=== PATIENT | female | born 1950 | race Caucasian/White ===

== ENCOUNTER 2019-09-02 05:31 | Day surgery (SDC) | payer MEDICARE, OTHER, SELFPAY ==
[2019-09-01 10:36] VITALS: BMI 38.7
[2019-09-02] VITALS (10 sets, daily range): BP systolic 131–178; BP diastolic 66–98; PULSE 76–85; RESP 14–20; TEMP 36.2–36.6; O2SAT 93–100
[2019-09-02 05:49] LABS: Glucose Point of Care 131 mg/dL (70-110)
[2019-09-02] MEDS: sodium chloride 0.9% 1,000 ML 30 ML IV (05:51)
--- NOTE | 2019-09-02 06:20 | ANES.PREANES ---
Pre-Anesthetic Assessment Pre-Anesthetic Assessment: Height/Weight: Height 1.68 m Weight 108.862 kg Temp Pulse Resp BP Pulse Ox 97.1 F L 85 18 178/98 95 09/02/19 05:40 09/02/19 05:40 09/02/19 05:40 09/02/19 05:40 09/02/19 05:40 Preop Diagnosis: Left shouledr rotator cuff tear, AC joint DJD, subluxing long head of bicep Proposed Procedure: Operation Date: 09/02/19 07:00 Proposed Procedures p Shoulder Arthroscopy, subacromial decompression, poss biceps tenodesis 12365/M75.112 S46.119A(Left) - Jake Rubio DO s Rotator Cuff Repair(Left) - Jake Rubio DO Familial anesthetic complications: No history of trouble Was Beta Cristela taken within 24 hours: Yes Last intake: Intake Last Liquid Date 09/01/19 Last Liquid Time 19:00 Last Solid Date 09/01/19 Last Solid Time 19:00 Social: Social History: No alcohol and No tobacco Exam: Pre-Anes Outpt Exam: alert, oriented x 3, clear to auscultation bilaterally and regular rate & rhythm Airway: Cervical ROM: WNL MP: 3 Additional comments: back teeth missing Pulmonary: Pulmonary: Sleep apnea (CPap) Comments: pneumothorax 1980 and 1981 (was told she had weak spot); no issues since then. Was told she shouldn't blow up balloons, will need to be careful with positive pressure ventilation, patient does use 10 of CPAP at night CV/HEM: CV/HEM: HTN Comments: Was told they had to use the paddles during a previous surgery, but she nor family was told nothing about cardiac arrest and surgeon didn't even tell her until she asked why her chest was bruised so this is unlikely to be cardiac arrest or defibrillation : : None reported Hepatic: Hepatic: None reported Metabolic: Metabolic: DM and Morbid obesity Musc/skel: Musc/skel: Lower Back Pain Neuropsych: Neuropsych: None reported Anesthetic Plan: ASA status: III Anesthesia: General Other: interscalene Risk of > 500 ml blood loss (7ml/kg in children): No Meds/Allergies Current Medications: Current Medications Generic Name Dose Route Start Last Admin Trade Name Freq PRN Reason Stop Dose Admin Sodium Chloride 1,000 mls @ 30 ml s/hr 09/02/19 05:30 09/02/19 05:51 Sodium Chloride 0.9% IV 09/03/19 05:29 30 mls/hr .Q24H [place] Administration PFSH Anesthesia PFSH: Family History (Updated 09/01/19 @ 10:23 by Mahsa Rae) Mother Cancer Father Emphysema lung Other Diabetes Heart disease Hypertension Data Anesthesia Other Labs: Laboratory Results - last 48 hr 09/02/19 05:46 POC Glucose 131 Cardiac Studies: No Data to Display
[2019-09-02] MEDS: midazolam 1 mg/mL INJ 5 ML 2 MG IVP (06:38)
[2019-09-02] MEDS: cefUROXime 1,500 MG in sodium chloride 0.9% (plus) 50 ML 100 MG IV (06:57)
--- NOTE | 2019-09-02 07:11 | PM.HPUD ---
H&P update H&P Update: DATE OF SURGERY/PROCEDURE: 09/02/19 DATE H&P PERFORMED: 08/06/19 H&P UPDATE INFORMATION: H&P completed within last 30 days and No changes to prior documentation PREOP DIAGNOSIS: left shoulder rotator cuff tear, AC joint DJD, subluxing biceps tendon PLANNED PROCEDURE: Operation Date: 09/02/19 07:00 Proposed Procedures p Shoulder Arthroscopy, subacromial decompression, poss biceps tenodesis 23380/M75.112 S46.119A(Left) - Jake Rubio DO s Rotator Cuff Repair(Left) - Jake Rubio DO Full H&P Medications/Allergies: Current Medications: Current Medications Generic Name Dose Route Start Last Admin Trade Name Freq PRN Reason Stop Dose Admin Sodium Chloride 1,000 mls @ 30 ml s/hr 09/02/19 05:30 09/02/19 05:51 Sodium Chloride 0.9% IV 09/03/19 05:29 30 mls/hr .Q24H [place] Administration Perinent History: Family History: Family History (Updated 09/01/19 @ 10:23 by Mahsa Rae) Mother Cancer Father Emphysema lung Other Diabetes Heart disease Hypertension
--- NOTE | 2019-09-02 07:15 | P.OP_ITS ---
Operative Report Date of procedure: 09/02/19 Preop Diagnosis: left shoulder rotator cuff tear, AC joint DJD, subluxing biceps tendon Post-op Findings: type I SLAP lesion Partial-thickness left shoulder rotator cuff tear involving supraspinatus tendon Complete tear of long head of biceps tendon Acromioclavicular joint degenerative arthritis Procedure Done: diagnostic arthroscopy of left shoulder with minimal debridement Open rotator cuff repair Open subacromial decompression Open distal clavicle resection Implants: four Arthrex swivel lock anchors Specimens removed/disposition: distal clavicle and portions of acromion Surgeon: Jake Rubio Anesthesia: general and other (left interscalene block) Estimated blood loss (mL): 50 Complications: no apparent complications Findings: type I SLAP lesion Partial-thickness rotator cuff tearing of supraspinatus tendon Biceps tendon is not visualized within the left shoulder joint. No significant arthritic change of the glenohumeral joint Condition: stable Disposition: PACU Brief History: 68-year-old white female with chronic left shoulder pain felt to be on the basis of chronic impingement with acromioclavicular joint arthritis. MRI was suggestive of partial thickness tearing of the rotator cuff involving the supraspinatus tendon as well as a subluxating long head of biceps tendon. Risks, benefits and potential complications surgery discussed with the patient. Risks include aren't limited to infection, nerve/blood vessel/tendon injury, potential re-tear of rotator cuff. Failure to relieve all pain. Medical complications can include blood clots, heart attack, stroke risk up to including . All questions were answered patient agreeable to proceed with surgery. Procedure: patient identified. Surgical site was signed. Surgical permit was signed. Patient received a left-sided interscalene block in the preoperative holding area by the anesthesia team. Patient received 1.5 g Zinacef intravenously for surgical prophylaxis. The patient is taken to the operating room. She was placed supine on the operating room table. She was then placed under general anesthesia without difficulty. The patient is in position of the beachchair positioner. The patient is in sterilely prepped and draped usual fashion. Procedural pause was performed. Bony landmarks were outlined using a skin marker. Posterior portal incision was made with #11 blade. The arthroscopic sheath was introduced into the glenohumeral joint. The humeral joint was distended using arthroscopic pump using sterile saline and dilute epinephrine solution. We verified that we within the shoulder joint. The scope was taken superior to the subscapularis tendon intent of the skin anteriorly. Using a switching stick we tented the skin anteriorly and anterior incision was made with #15 blade an Arthrex 7 mm clear cannula was then inserted into the glenohumeral joint. Arnoldo then placed within the shoulder joint through the anterior portal. The patient noted to have a type I SLAP lesion with fraying from anterior to posterior. This was debrided using motorized shaver. Patient had some mild to moderate synovitis. The long head of the biceps tendon was not identified is felt that the tendon had completely torn off of the glenoid rim. There are 3 changes were noted. We then sent trochanter attention to the insertion of rotator cuff there is partial tearing enfolding of the articular fibers of the supraspinatus tendon. This area partially staring was tagged by placing a spinal needle through the skin into the shoulder joint and placing a 0 PDS suture through the spinal needle and exiting out the anterior cannula. We then removed the arthroscope from the shoulder joint as well as the Arthrex clear cannula. The arthroscope was placed in the subacromial space and exit at the anterior portal over which the Arthrex clear cannula was then inserted subacromial space. We attempted to debridement bursal tissue had difficulty obtaining good visualization in the subacromial space due to the bleeding and swelling of the soft tissues. This point I elected to convert to an open procedure 8 cm incision was made from distal clavicle going over the anterolateral border of the acromion. Full-thickness skin flaps were made skin edge bleeders were coagulated electrocautery. We then incised the deltotrapezial insertion of distal clavicle and the acromion using the electrocautery. Full-thickness flaps of muscular insertion on the acromion and distal clavicle was performed. We then identified the before meals joint. The distal clavicle was cut using oscillating saw as was the anterior aspect of the acromion. We then thinned the acromion using osteotome. Portions distal clavicle and the acromion were submitted for pathology. We then smoothed the undersurface of the acromion using a power rasp. We then split the junction of the anterior and middle bellies of the deltoid longitudinally with Metzenbaum scissors and suffered a retractors put into place. We identified the PDS suture in the intact bursal sided fibers the rotator cuff. Using a 15 blade we completed the partial thickness tear of the rotator cuff and elevated the supraspinatus tendon off of the greater tuberosity. The greater tuberosity portions of the attached rotator cuff were debrided using a rongeur followed by roughening of the greater tuberosity using a motorized rasp. Then placed 2 Arthrex swivel lock anchors preloaded with fiber tape anteriorly and posteriorly making the medial row. the joint fiber tape sutures were passed through the rotator cuff using the [employer] needle automobile drivers. We then split the fiber tape sutures to create a speed bridge construct which was secured in place securing the rotator cuff tendon down to bone by placing 2 lateral row swivel lock anchors. There is irrigated with Betadine-containing saline solution and antibiotic containing saline solution. The deltoid insertion onto the acromion was repaired by passing suture through the deltoid and through the acromion and suturing it to itself. Deltotrapezial insertion was closed with sutures of #2 FiberWire. The split of the deltoid was similarly repaired with suture #2 FiberWire. Wound was then closed in layers with a running 3-0 Monocryl septic or suture with Dermabond and Steri-Strips on skin. Sterile dressings were applied. The patient placed in a shoulder immobilizer. The patient was aroused from general anesthesia. She was taken to recovery room. She tolerated surgery well. All counts are correct.
[2019-09-02] MEDS: midazolam 1 mg/mL INJ 2 mL 2 MG IVP (07:26)
[2019-09-02] MEDS: EPINEPHrine 1 mg/mL INJ XX ×3 (08:25→08:41)
--- NOTE | 2019-09-02 09:56 | ANES.PROC ---
Anesthesia Procedures Procedure/Date: 09/02/19 Nerve Block ^: Nerve Block 1: Main Anesthesia: general anesthesia Time Out Performed: Yes Consent: requested by attending/covering physician, from patient, risks and benefits reviewed and patient agrees to proceed Nerve block location: interscalene Anesthesia monitors applied: pulse oximetry Nerve block position: semi sitting Anesthetic Used: ropivicaine 0.5% and with decadron (4 mg) Amount of anesthesia used (mL): 20 Ultrasound used to: recognize landmarks, visualize and ID brachial plexus and visualize and ID interscalene groove Interscalene/Femoral BLK: 2 stimuplex 22 g needle used for position and inplane approach Injection: neg aspiration of heme Patient Tolerated Procedure: well and no complications Complications: none
--- NOTE | 2019-09-02 10:36 | SUR.PHASEI ---
1023 PT AWAKES EASILY ENCOURAGED TO TAKE OCC DEEP BREATHES, VSS LT ARM IN SHOULDER IMMOBILIZER WITH FIRST ICE TO SHOULDER, PT DENIES PAIN AND NAUSEA, VSS PT TO OPS AWAKE ALERT ASKING FOR SPRITE TO SIP ON .
== END 2019-09-02 11:50 | disposition home or self-care (01) ==
PROVIDERS: Family Provider Nurse Practitioner Family; PCP Nurse Practitioner Family; Visit Provider Orthopaedic Surgery
PROC: (CPT 29805; principal; 2019-09-02 07:00)
PROC: (CPT 23120; 2019-09-02 07:00)
DX: S43.432A Superior glenoid labrum lesion of left shoulder, initial encounter (principal); X58.XXXA Exposure to other specified factors, initial encounter; Z82.49 Family history of ischemic heart disease and other diseases of the circulatory system; Z83.3 Family history of diabetes mellitus; I10 Essential (primary) hypertension; Z87.891 Personal history of nicotine dependence; Z79.84 Long term (current) use of oral hypoglycemic drugs; Z79.82 Long term (current) use of aspirin
CPT/HCPCS: 23120; 23130; 23412; 29822; 12345; 36416; 82962; 88304; 96365; 96374; 96375; J0171; J0697; J1100; J1580; J2001; J2250; J2405; J2704; J2795; J3010; J3490; J7030

== ENCOUNTER 2020-01-06 11:23 | Outpatient (RCR) | payer MEDICARE, OTHER, SELFPAY | END 2020-01-16 23:59 | disposition home or self-care (01) | LOC: SPT 11:23 | PROVIDERS: PCP Nurse Practitioner Family; Referring Provider Orthopaedic Surgery; Visit Provider Orthopaedic Surgery | DX: Z47.89 Encounter for other orthopedic aftercare (principal) | CPT/HCPCS: 97110; 97161; 97530 ==

== ENCOUNTER 2020-01-17 06:00 | Outpatient (RCR) | payer MEDICARE, OTHER, SELFPAY | END 2020-02-15 23:59 | disposition home or self-care (01) | LOC: SPT 06:00 | PROVIDERS: PCP Nurse Practitioner Family; Visit Provider Orthopaedic Surgery | DX: Z47.89 Encounter for other orthopedic aftercare (principal) | CPT/HCPCS: 97110 ==

== ENCOUNTER 2020-02-16 19:25 | Outpatient (RCR) | payer MEDICARE, OTHER, SELFPAY | END 2020-03-17 23:59 | disposition home or self-care (01) | LOC: SPT 19:25 | PROVIDERS: PCP Nurse Practitioner Family; Visit Provider Orthopaedic Surgery | DX: Z47.89 Encounter for other orthopedic aftercare (principal) | CPT/HCPCS: 97110 ==

== ENCOUNTER 2020-02-24 13:09 | Outpatient (CLI) | payer MEDICARE, OTHER, SELFPAY ==
--- NOTE | 2020-02-24 13:16 | MM_ITS ---
WS: [id number] BILATERAL SCREENING MAMMOGRAM WITH CHILO DISPLACEMENT VIEWS. CAD PERFORMED. HISTORY: SCREENING COMPARISON: 09/24/2018, 07/23/2017 Bilateral craniocaudal and mediolateral like views are performed. Chilo displacement views in CC and MLO projection also performed. Breasts composition: There are scattered areas of fibroglandular density. Prepectoral implants are again evident. These implants are shrunken and contracted with capsular calc ifications. Similar in appearance to the prior study. There are scattered calcifications and vascular calcifications. No new calcifications. No new masses. MM/[id number] IMPRESSION: BI-RADS: 2-Benign FOLLOW-UP: 1 Year Follow-up
== END 2020-02-24 13:10 | disposition home or self-care (01) ==
LOC: RADSHAW 13:14
PROVIDERS: PCP Nurse Practitioner Family; Visit Provider Nurse Practitioner Family
DX: Z12.31 Encounter for screening mammogram for malignant neoplasm of breast (principal)
CPT/HCPCS: 77067

== ENCOUNTER 2020-03-18 06:00 | Outpatient (RCR) | payer MEDICARE, OTHER, SELFPAY | END 2020-04-17 23:59 | disposition home or self-care (01) | LOC: SPT 06:00 | PROVIDERS: PCP Nurse Practitioner Family; Visit Provider Orthopaedic Surgery | DX: M25.612 Stiffness of left shoulder, not elsewhere classified (principal); R53.1 Weakness | CPT/HCPCS: 97110; 97140 ==

== ENCOUNTER 2020-04-18 06:00 | Outpatient (RCR) | payer MEDICARE, OTHER, SELFPAY | END 2020-05-17 23:59 | disposition home or self-care (01) | LOC: SPT 06:00 | PROVIDERS: PCP Nurse Practitioner Family; Referring Provider Specialist; Visit Provider Specialist | DX: Z47.89 Encounter for other orthopedic aftercare (principal) | CPT/HCPCS: 97110 ==

== ENCOUNTER 2020-05-18 06:00 | Outpatient (RCR) | payer MEDICARE, OTHER, SELFPAY | END 2020-06-17 23:59 | disposition home or self-care (01) | LOC: SPT 06:00 | PROVIDERS: PCP Nurse Practitioner Family; Referring Provider Specialist; Visit Provider Specialist | DX: Z47.89 Encounter for other orthopedic aftercare (principal) | CPT/HCPCS: 97110 ==

== ENCOUNTER 2020-06-18 06:00 | Outpatient (RCR) | payer MEDICARE, OTHER, SELFPAY | END 2020-07-17 23:59 | disposition home or self-care (01) | LOC: SPT 06:00 | PROVIDERS: PCP Nurse Practitioner Family; Referring Provider Specialist; Visit Provider Specialist | DX: Z47.89 Encounter for other orthopedic aftercare (principal) | CPT/HCPCS: 97110 ==

== ENCOUNTER → 2020-08-21 11:05 | Outpatient (BNVA) | payer MEDICARE, OTHER, SELFPAY | PROVIDERS: PCP Nurse Practitioner Family; Visit Provider Nurse Practitioner Family | DX: N39.0 Urinary tract infection, site not specified (principal) | CPT/HCPCS: 81003; 87086 ==

== ENCOUNTER → 2020-11-29 08:13 | Outpatient (BNVA) | payer MEDICARE, SELFPAY | PROVIDERS: PCP Nurse Practitioner Family; Visit Provider Urology | DX: N39.0 Urinary tract infection, site not specified (principal); R39.15 Urgency of urination | CPT/HCPCS: 81003 ==

== ENCOUNTER 2021-05-25 07:14 | Outpatient (CLI) | payer MEDICARE, SELFPAY ==
--- NOTE | 2021-05-25 07:24 | MM_ITS ---
WS: [id number] BILATERAL SCREENING MAMMOGRAM WITH CHILO DISPLACEMENT VIEWS. CAD PERFORMED. HISTORY: SCREENING COMPARISON: 02/24/2020, 09/24/2018 Bilateral craniocaudal and mediolateral like views are performed. Chilo displacement views in CC and MLO projection also performed. Breasts composition: There are scattered areas of fibroglandular density. Breast implants are small and contracted with capsular contractions. Probably no significant change s donta the prior study. There are no masses identified within the breast. MM/[id number] IMPRESSION: BI-RADS: 2-Benign FOLLOW-UP: 1 Year Follow-up
== END 2021-05-25 07:15 | disposition home or self-care (01) ==
LOC: RADSHAW 07:19
PROVIDERS: PCP Nurse Practitioner Family; Visit Provider Nurse Practitioner Family
DX: Z12.31 Encounter for screening mammogram for malignant neoplasm of breast (principal)
CPT/HCPCS: 77067

== ENCOUNTER → 2021-05-30 09:20 | Outpatient (BNVA) | payer MEDICARE, SELFPAY | PROVIDERS: PCP Nurse Practitioner Family; Visit Provider Urology | DX: N39.0 Urinary tract infection, site not specified (principal); R39.15 Urgency of urination | CPT/HCPCS: 81003 ==

== ENCOUNTER 2021-06-15 09:29 | Outpatient (CLI) | payer MEDICARE, SELFPAY ==
--- NOTE | 2021-06-15 09:36 | XR_ITS ---
WS: [id number] Exam: XR ankle LT 2V [id number] Date/Time of Exam: 06/15/2021 9:47 AM Reason For Exam: ACUTE LEFT ANKLE PAIN No acute fracture or dislocation. Mild degenerative change of the ankle mortise. Normal soft tissues. Prominent calcaneal spurs. XR/XR ankle LT 2V [id number] IMPRESSION: 1. DJD of the ankle mortise. No fracture or other significant finding.
--- NOTE | 2021-06-15 09:36 | XR_ITS ---
WS: [id number] Exam: XR chest 2V* [id number] Date/Time of Exam: 06/15/2021 9:47 AM Reason For Exam: DHORTNESS OF BREATH Comparison to rib study performed 03/22/2019. The lungs are fully inflated. Chronic pleural changes at the left costophrenic angle. Heart size is n ormal. The mediastinum is not widened. Regional bony elements are intact. Calcified encapsulated bila teral breast implants are seen. Anchoring screws in the right humeral head. XR/XR chest 2V* [id number] IMPRESSION: 1. Chronically blunted left costophrenic angle probably representing pleural th ickening. 2. Pulmonary hyperinflation which may indicate obstructive lung disease. 3. No acute process noted.
== END 2021-06-15 09:30 | disposition home or self-care (01) ==
LOC: RAD 09:33
PROVIDERS: PCP Nurse Practitioner Family; Visit Provider Nurse Practitioner Family
DX: R06.02 Shortness of breath (principal); M19.072 Primary osteoarthritis, left ankle and foot
CPT/HCPCS: 71046; 73600

== ENCOUNTER → 2021-07-20 11:37 | Outpatient (BNVA) | payer MEDICARE, SELFPAY | PROVIDERS: PCP Nurse Practitioner Family; Visit Provider Nurse Practitioner Family | DX: Z20.822 Contact with and (suspected) exposure to COVID-19 (principal) | CPT/HCPCS: 87635 ==

== ENCOUNTER 2021-07-31 15:12 | Outpatient (CLI) | payer MEDICARE, SELFPAY ==
--- NOTE | 2021-07-31 15:55 | XR_ITS ---
WS: [id number] XR chest 2V* [id number] REASON FOR EXAM: RULE OUT PNEUMONIA FINDINGS: Mild tortuosity the thoracic aorta. Mild cardiomegaly. Compared to the examination of 06/15/2021, there are interstitial changes in the lower lung adames wi th probable small bilateral pleural effusions. Postoperative changes in the right shoulder. AC separation in the left shoulder. Mild degenerative sp ondylosis in the mid and lower thoracic spine. XR/XR chest 2V* [id number] IMPRESSION: Interstitial changes and possible pleural effusions in both lower hemithoraces. Findings could represent congestive failure. Pneumonitis not excluded.
== END 2021-07-31 15:13 | disposition home or self-care (01) ==
PROVIDERS: PCP Nurse Practitioner Family; Visit Provider Internal Medicine Pulmonary Disease
DX: J22 Unspecified acute lower respiratory infection (principal)
CPT/HCPCS: 71046

== ENCOUNTER → 2021-08-13 10:26 | Outpatient (BNVA) | payer MEDICARE, SELFPAY | PROVIDERS: PCP Nurse Practitioner Family; Referring Provider Nurse Practitioner Family; Visit Provider Podiatrist Foot & Ankle Surgery | DX: M79.672 Pain in left foot (principal); M21.612 Bunion of left foot; M77.32 Calcaneal spur, left foot; Z46.89 Encounter for fitting and adjustment of other specified devices; M76.62 Achilles tendinitis, left leg | CPT/HCPCS: 73630; 97760; L4397 ==

== ENCOUNTER 2021-08-13 15:28 | Outpatient (CLI) | payer MEDICARE, SELFPAY | END 2021-08-13 15:29 | disposition home or self-care (01) | LOC: SPT 15:29 | PROVIDERS: PCP Nurse Practitioner Family; Visit Provider Podiatrist Foot & Ankle Surgery | DX: Z46.89 Encounter for fitting and adjustment of other specified devices (principal); M76.62 Achilles tendinitis, left leg | CPT/HCPCS: 97760; L4397 ==

== ENCOUNTER 2021-09-21 11:35 | Outpatient (CLI) | payer MEDICARE, SELFPAY ==
--- NOTE | 2021-09-21 12:00 | CT_ITS ---
WS: [id number] CT CHEST WITHOUT INTRAVENOUS CONTRAST HISTORY: exertional shortness of breath - r/o interstitial lung disease TECHNIQUE: Contiguous 5 mm axial imaging performed on the thorax. Coronal and sagittal reformats are submitted. All CT scans at [facility] use at least one of these dose optimization techniques: automated exposure control; mA and/or kV adjustment per patient size (includes targeted exams where dose is matched to clinical indication); or iterative reconstruction. CONTRAST: None DLP: 754.97 mGy.cm COMPARISON: None available. Lungs and central airway: Mild pulmonary hyperinflation. Peripheral, multilobar areas of irregular op acifications. These are involving the upper and lower lung adames. Peripheral and subpleural in locat ion. Some of these nodules are densely consolidated well other nodules contains some groundglass atte nuation. No focal pulmonary conglomeration at the lung bases. Pleura: No effusion. Very mild pleural thickening throughout. Heart and pericardium: Mild cardiomegaly. No pericardial effusion. There are a few scattered coronary artery calcifications. Mediastinum and johnny: Mediastinal and hilar lymph nodes are mildly prominent. The largest lymph node is subcarinal measuring 14 mm. This may be reactive. There are additional lymph nodes which are small er in size. Vessels: Mild atherosclerosis of the thoracic aorta. Normal pulmonary artery size. No aneurysm. Chest wall and lower neck: Partially calcified bilateral breast implants. Upper abdomen: Mild hepatic steatosis. No adrenal mass. Low-attenuation lesion in the spleen measures 2.1 cm. This lesion may be a small cyst. Cannot be further evaluated without IV contrast. New since 2006. Osseous structures: Mild increase in thoracic kyphosis. CT/CT chest wo con [id number] IMPRESSION: 1. Bilateral peripheral and subpleural consolidations and associated groundgla ss attenuation. No honeycombing or traction bronchiectasis identified. Consider cryptogenic organizing pneumonia and chronic eosinophilic pneumonia. 2. Chronic emphysema. 3. Indeterminate subcarinal lymph node at 14 mm. 4. Partially calcified bilateral breast implants.
== END 2021-09-21 11:36 | disposition home or self-care (01) ==
LOC: RAD 11:41
PROVIDERS: PCP Nurse Practitioner Family; Visit Provider Internal Medicine Pulmonary Disease
DX: R06.02 Shortness of breath (principal); J43.9 Emphysema, unspecified; Z98.82 Breast implant status
CPT/HCPCS: 71250

== ENCOUNTER → 2021-09-24 10:42 | Outpatient (BNVA) | payer MEDICARE, SELFPAY | PROVIDERS: PCP Nurse Practitioner Family; Visit Provider Internal Medicine Pulmonary Disease | DX: Z01.812 Encounter for preprocedural laboratory examination (principal); Z20.822 Contact with and (suspected) exposure to COVID-19 | CPT/HCPCS: 87635 ==

== ENCOUNTER 2021-09-26 07:32 | Outpatient (CLI) | payer MEDICARE, SELFPAY ==
--- NOTE | 2021-09-26 11:40 | PFTS_ITS ---
Date of Study:09/26/21 Date of Dictation: 09/27/2021 MECHANICS: Postbronchodilator forced vital capacity (FVC) is reduced. Postbronchodilator forced expiratory volume in one second (FEV1) is moderately reduced 65 %. FEV1/FVC is normal. -There is no significant bronchodilator response FLOW VOLUME LOOP: Scooping of expiratory limb suggestive of airway obstruction LUNG VOLUMES: Total lung capacity (TLC) is reduced. Residual volume (RV) is reduced. DIFFUSING CAPACITY FOR CARBON MONOXIDE: Normal . INTERPRETATION: The spirometry and lung volumes consistent with moderate restriction. Flow volume loop suggestive of small airway obstruction. There is no significant bronchodilator response. Normal gas transfer. Clinical correlation recommended MTDD
== END 2021-09-26 07:33 | disposition home or self-care (01) ==
PROVIDERS: PCP Nurse Practitioner Family; Visit Provider Internal Medicine Pulmonary Disease
DX: R06.02 Shortness of breath (principal)
CPT/HCPCS: 94060; 94726; 94729; J7611

== ENCOUNTER 2021-10-15 09:16 | Outpatient (CLI) | payer MEDICARE, SELFPAY ==
--- NOTE | 2021-10-15 06:42 | USCV_ITS ---
LV Shanae Baxter Age: 71 Gender: F : 1950 Exam Date: 10/15/2021 09:35 Ordering Phys: Jacques Bear MD Technologist: CORRINA Exam Location: [facility] [place] Indication: SOB BP: 130 / 74 HR: 78 Rhythm: Sinus Technical Quality: Suboptimal MEASUREMENTS (Male / Female) Normal Values 2D ECHO LV Diastolic Diameter PLAX 4.4 cm 4.2 - 5.9 / 3.9 - 5.3 cm LV Systolic Diameter PLAX 2.6 cm IVS Diastolic Thickness 1.4 cm 0.6 - 1.0 / 0.6 - 0.9 cm IVS Systolic Thickness 1.8 cm LVPW Diastolic Thickness 1.1 cm 0.6 - 1.0 / 0.6 - 0.9 cm LVPW Systolic Thickness 1.7 cm LVOT Diameter 2.0 cm LV Ejection Fraction 2D Teich 73.1 % LV Ejection Fraction MOD 2C 78.2 % LV Ejection Fraction 2C AL 78.2 % LA Diameter 3.5 cm LA Width 3.1 cm LA Height 4.7 cm RA Width 3.4 cm RA Height 4.4 cm Aorta at Sinotubular Diameter 2.3 cm M-MODE MV E Point Septal Separation 0.4 cm DOPPLER AV Peak Velocity 133.0 cm/s LVOT Peak Velocity 135.0 cm/s AV Area Cont Eq vti 3.1 cm squared AV Area Cont Eq pk 3.2 cm squared MV Peak Velocity 110.0 cm/s MV Area PHT 4.0 cm squared Mitral E to A Ratio 1.0 MV E' Velocity 50.5 cm/s Mitral E to MV E' Ratio 9.8 Mitral E to LV E' Lateral Ratio 7.8 Mitral E to LV E' Septal Ratio 13.2 TR Peak Velocity 188.1 cm/s TR Peak Gradient 14.2 mmHg TR Mean Velocity 148.6 cm/s TR Mean Gradient 10.0 mmHg TR Velocity Time Integral 45.2 cm TV Peak E Velocity 52.0 cm/s PV Peak Velocity 83.0 cm/s RV Acceleration Time 0.1 s RV Ejection Time 0.3 s RV AcT/ET 0.2 FINDINGS Left Ventricle Normal left ventricular size. LV systolic function is normal with EF of 55-60%. No regional wall motion abnormalities. Normal diastolic filling pattern. Right Ventricle The right ventricle is normal in size and function. Right Atrium The right atrium is normal in size. Left Atrium The left atrium is normal in size. Mitral Valve Grossly normal without significant stenosis or prolapse. There is mild mitral regurgitation. Aortic Valve Not well visualized. No significant stenosis. There is no aortic regurgitation. Tricuspid Valve Grossly normal without significant stenosis or regurgitation. Insufficient TR jet to calcualte RVSP Pulmonic Valve Not well visualized Pericardium Trace pericardial effusion Aorta Normal ascending aorta dimension. CONCLUSIONS Technically limited quality echocardiogram because of poor ultrasonic windows. LV systolic function is normal with EF of 55-60% Normal diastolic function Mild mitral regurgitation Trace pericardial effusion No comparison studies are available Andrea Menjivar MD (Electronically Signed) Final Date: 20 October 2021 11:36 S
== END 2021-10-15 09:17 | disposition home or self-care (01) ==
PROVIDERS: PCP Nurse Practitioner Family; Visit Provider Internal Medicine Pulmonary Disease
DX: R06.02 Shortness of breath (principal); I34.0 Nonrheumatic mitral (valve) insufficiency; I31.3 Pericardial effusion (noninflammatory)
CPT/HCPCS: 93306

== ENCOUNTER → 2021-10-18 16:23 | Outpatient (BNVA) | payer MEDICARE, SELFPAY | PROVIDERS: PCP Nurse Practitioner Family; Visit Provider Internal Medicine Pulmonary Disease | DX: R91.8 Other nonspecific abnormal finding of lung field (principal) | CPT/HCPCS: 87635 ==

== ENCOUNTER 2021-10-22 09:00 | Outpatient (CLI) | payer MEDICARE, SELFPAY ==
[2021-10-22 10:29] LABS: C Reactive Protein 3.1 mg/L (0.0-4.9)
[2021-10-22 10:43] LABS: Erythrocyte Sedimentation Rate 27 mm/hr (0-15)
[2021-10-23 10:18] LABS: Alpha 1 Antitrypsin 142 mg/dL (83-199)
[2021-10-23 13:12] LABS: Cyclic Citrullinated Peptide <16 UNITS
[2021-10-23 14:32] LABS: Anti-Double Strand DNA AB <1 IU/mL; Centromere B Antibody <1.0 NEG AI (<1.0 NEG); JO-1 Antibody <1.0 NEG AI (<1.0 NEG); SS A Ro Sjogrens Antibody <1.0 NEG AI (<1.0 NEG); SS-B/LA IGG <1.0 NEG AI (<1.0 NEG); Sm/RNP Antibody <1.0 NEG AI (<1.0 NEG); Smith Antibody <1.0 NEG AI (<1.0 NEG)
[2021-10-23 16:43] LABS: Anti-Nuclear Antibody Screen NEGATIVE (NEGATIVE)
== END 2021-10-22 09:01 | disposition home or self-care (01) ==
LOC: LAB 09:05
PROVIDERS: PCP Nurse Practitioner Family; Visit Provider Internal Medicine Pulmonary Disease
DX: J84.9 Interstitial pulmonary disease, unspecified (principal); Z77.29 Contact with and (suspected) exposure to other hazardous substances
CPT/HCPCS: 82103; 85651; 86038; 86140; 86200; 86225; 86235; 86331; 86431; 86606; 86609

== ENCOUNTER 2021-10-23 05:52 | Day surgery (SDC) | payer MEDICARE, SELFPAY ==
[2021-10-19 09:02] VITALS: BMI 36.4
[2021-10-23] VITALS (14 sets, daily range): BP systolic 115–158; BP diastolic 44–84; PULSE 59–79; RESP 16–20; TEMP 36.1–36.2; O2SAT 86–96
--- NOTE | 2021-10-23 | SC_ITS ---
WS: [id number] C-ARM RADIOGRAPHS CHEST; 2 IMAGES HISTORY: bronchoscopy COMPARISON: None available. Limited intraoperative imaging submitted. Indication bronchoscopy is noted projecting over the RIGHT lower lobe at the lung base. SC/C-arm FL for Bronchoscopy IMPRESSION: Intraoperative imaging during navigational bronchoscopy.
--- NOTE | 2021-10-23 | SCC_ITS ---
PROCEDURE DONE: Flexible bronchoscopy with airway inspection, obtaining bronchoalveolar lavage from right lower lobe, transbronchial biopsies from right lower lobe, control of bleeding 35.4 seconds of fluoroscopic guidance, for a cumulative dose of 9.60 mGy, was provided to Dr. Bear by the radiology department. C-arm images of the chest were saved for the patient's permanent record. MTDD
[2021-10-23] MEDS: sodium chloride 0.9% 1,000 ML 30 ML IV (06:18)
[2021-10-23 06:22] LABS: Glucose Point of Care 178 mg/dL (70-110)
--- NOTE | 2021-10-23 06:59 | P.HPUD_ITS ---
Surgery/Procedure H&P Update DATE OF PROCEDURE: October 23, 2021 DATE H&P PERFORMED: 10/23/21 CHANGES TO PREVIOUS DOCUMENTATION: 70-year-old female with past medical history of diabetes, hypertension, recurrent UTI, [id number] by PCP for SOB on exertion x 2 months, denies recent infection prior.? Reports went to Urgent Care 6 days ago for nasal congestion with green nasal drainage, productive cough with green sputum, sore throat, right ear pain with drainage. Denies fever, chills, hemoptysis.? States she was tested for COVID and told they will call with results, and unable to treat until results received, received call 2 days ago with negative COVID res ults but still no Tx.? Reports no other URI in last 1 year or more. Patient reported having bilateral ear infections and has decreased hearing, has purulent secretion from right ear and is making an appointment with ENT Dr. Emery. Last chest x-ray 1028 2020 for shortness of breath showed chronically blunted left costophrenic angle probably representing pleural thickening. Pulmonary hyperinflation which may indicate obstructive lung disease. Former cigarette smoker, quit 28 years ago, 2ppd x 20 year Hx.? Patient reported having exposure to bird droppings, she had 8 chickens and 1 parrot at in her house for several years. Gives history of spontaneous pneumothorax requiring chest tube in 1980s twice in 1 month.Her PFTs. normal gas transfer on spirometry and lung volumes. Chest CT 09/21/21 showeed Bilateral peripheral and subpleural consolidations and associated groundglass attenuation. No honeycombing or traction bronchiectasis identified. Consider cryptogenic organizing pneumonia and chronic eosinophilic pneumonia. chronic emphysema. Connective tissue disease panel is pending. today scheduled for Bronhscopy and transbronchial cryo biopsy with control of bleeding. In pre op, still complaining of dry cough and no improvement in shortness of breath. currently on trial of steroids, EXAM NARRATIVE: General: alert, NAD HEENT: conj clear, EOMI, PERRL, mmm, Neck: supple, no meningismus Heme: no cervical LAP Pulmonary: Reduced breath sounds bilateral lower zones Cardiovascular: rrr, nl s1s2, no mrg Abdomen: soft, nt, nd, no r/g, bs+ Extremities: pulses +, no edema, no c/c : no CVA tenderness Skin: intact, no rash MSK: no back or neck pain Neurologic: grossly intact ? PREOP DIAGNOSIS: interstial lung disease PRIMARY INDICATION FOR PROCEDURE: Interstital lung disease PLANNED PROCEDURE: Operation Date: 10/23/21 07:00 Proposed Procedures p Bronchoscopy(Not Applicable) - Jacques Bear MD s Cryotherapy(Not Applicable) - Jacques Bear MD
--- NOTE | 2021-10-23 07:11 | ANES.PREANE2 ---
Pre-Anesthetic Assessment Height/Weight: Height 1.68 m Weight 102.512 kg Temp Pulse Resp BP Pulse Ox 97.2 F L 59 L 18 158/81 95 10/23/21 06:06 10/23/21 06:06 10/23/21 06:06 10/23/21 06:06 10/23/21 06:06 Preop Diagnosis: interstial lung disease Operation Date: 10/23/21 07:00 Proposed Procedures p Bronchoscopy(Not Applicable) - Jacques Bear MD s Cryotherapy(Not Applicable) - Jacques Bear MD Familial anesthetic complications: None Was Beta Cristela taken within 24 hours: Yes Was Clonidine taken within 24 hours: N/A Last intake: Intake Last Liquid Date 10/22/21 Last Liquid Time 22:00 Last Solid Date 10/22/21 Last Solid Time 17:30 Social No alcohol and No tobacco (h/o smoking) Exam alert, oriented x 3, clear to auscultation bilaterally and regular rate & rhythm Airway Submandibular: within normal limits Cervical ROM: within normal limits Mallampati: Class III Dentition: chipped Pulmonary interstitial lung dz CV/HEM Hypertension Metabolic Diabetes Mellitus and Morbid Obesity Anesthetic Plan ASA status: 3 Anesthesia: General Medications/Allergies Home Medications Medication Instructions Recorded Confirmed Last Taken Type amlodipine 2.5 mg tablet 2.5 mg PO DAILY 09/01/19 10/23/21 10/21/21 History aspirin 81 mg tablet,delayed 81 mg PO DAILY 09/01/19 10/23/21 10/18/21 History release enalapril 10 1 tab PO DAILY 09/01/19 10/23/21 10/23/21 History mg-hydrochlorothiazide 25 mg tablet famotidine 20 mg tablet 20 mg PO DAILY 09/01/19 10/23/21 10/21/21 History glipizide 5 mg tablet, extended 5 mg PO DAILY 09/01/19 10/23/21 10/21/21 History release 24 hr (Glucotrol XL) metformin 500 mg tablet 500 mg PO BID 09/01/19 10/23/21 10/21/21 History metoprolol tartrate 50 mg tablet 50 mg PO DAILY 09/01/19 10/23/21 10/23/21 History pravastatin 10 mg tablet 10 mg PO DAILY 09/01/19 10/23/21 10/21/21 History Night Splint #1 ea 08/13/21 10/22/21 Unknown Rx prednisone 20 mg tablet 20 mg PO DAILY #7 tab 10/17/21 10/23/21 10/22/21 Rx Allergies Allergy/AdvReac Type Severity Reaction Status Date / Time No Known Allergies Allergy Verified 10/23/21 06:03 Current Medications Generic Name Dose Route Start Last Admin Trade Name Amilcar PRN Reason Stop Dose Admin Sodium Chloride 1,000 mls @ 30 mls/hr 10/23/21 06:00 10/23/21 06:18 Sodium Chloride 0.9% IV 10/24/21 05:59 30 mls/hr .Q24H [place] Administration PFSH Anesthesia Medical History Chronic meniscal tear of knee Diabetes Hypertension Pain, joint, knee, left Recurrent UTI Urinary urgency Surgical History H/O umbilical hernia repair History of lumpectomy of both breasts Hx of arthroscopy of left knee Hx of bladder repair surgery Hx of hysterectomy Hx of shoulder surgery S/P left rotator cuff repair Family History Mother Cancer Father Emphysema lung Other Diabetes Heart disease Hypertension Social History Quit status (tobacco): has quit using tobacco Former quit date comment: 2ppd x 20 years Alcohol intake: never Current occupational status: retired History of recent travel: No Data Anesthesia Cardiac Studies: Echocardiogram 10/15/21
[2021-10-23] MEDS: lidocaine 1% INJ 20 mL XX (08:15)
[2021-10-23] MEDS: cetacaine Spray 5 gm Can 1 SPRAY XX (08:15)
--- NOTE | 2021-10-23 08:32 | XR_ITS ---
WS: [id number] PORTABLE CHEST HISTORY: POST TRANSBRONCHIAL BIOPSY TO RULE OUT PNEUMOTHORAX COMPARISON: 07/31/2021 No pneumothorax is identified status post navigational bronchoscopy. Bilateral lower lobe interstitial thickening with additional mild interstitial thickening in the uppe r lung adames. No lobar collapse. No pleural effusion or pneumothorax. Cardiac size: Normal. Mediastinum/Aorta: Mild atherosclerosis aorta. Osteopenia. Anchors noted in the RIGHT humeral head. Calcified bilateral breast implants. XR/XR chest 1V portable [id number] IMPRESSION: No pneumothorax status post navigational bronchoscopy.
--- NOTE | 2021-10-23 08:34 | PM.OP ---
Operative Report Date of procedure: October 23, 2021 Pre-op diagnosis: Preop Diagnosis interstial lung disease Post-op diagnosis: Interstitial lung disease Procedure done: Flexible bronchoscopy with airway inspection, obtaining bronchoalveolar lavage from right lower lobe, transbronchial biopsies from right lower lobe, control of bleeding Brief History: 70-year-old female with past medical history of diabetes, hypertension, recurrent UTI, [id number] by PCP for SOB on exertion x 2 months, Patient reported having exposure to bird droppings, she had 8 chickens and 1 parrot at in her house for several years.? Gives history of spontaneous pneumothorax requiring chest tube in 1980s twice in 1 month.Her PFTs.? normal gas transfer on spirometry and lung volumes.? Chest CT 09/21/21 showeed Bilateral peripheral and subpleural consolidations and associated groundglass attenuation. No honeycombing or traction bronchiectasis identified. Consider cryptogenic organizing pneumonia and chronic eosinophilic pneumonia. today underwent for Bronhscopy to obtain bronchoalveolar lavage, transbronchial biopsy from right lower lobe and control of bleeding. Procedure: Procedure: Flexible bronchoscopy with airway inspection, obtained bronchoalveolar lavage sample and transbronchial biopsies from right lower lobe, control of bleeding Pre-Operative Diagnosis: Interstitial lung disease Post-Operative Diagnosis: Same Indication: Patient with exertional dyspnea and dry cough and CT evidence of Bilateral peripheral and subpleural consolidations and associated groundglass attenuation. No honeycombing or traction bronchiectasis identified. Consider cryptogenic organizing pneumonia and chronic eosinophilic pneumonia. Anesthesia: General managed as per anesthesia team Pre-procedure Evaluation: Patient was evaluated clinically and ancillary testing reviewed. The risk of having active MTB infection is very low in my clinical judgement. ASA: 3 Malampati score: unable to evaluate due to presence of endotracheal tube Consent: Consents were obtained from patient and placed in the chart Procedure Details: Time out was performed by the procedure team and nursing staff. Vent support maintained on Fio2 100. The bronchoscope was introduced through the ETT. A bronchoscopic airway exam was performed to evaluate the visible tracheobronchial tree to the segmental level. Summary of Significant Findings: -Bronchoscope passed through ET tube, 1 mL each of 1% lidocaine instilled into the trachea, both right and left main bronchus. Distal trachea and main gosia visualized which were sharp and normal. Then the scope was passed through the right bronchial tree was assessed to include the right mainstem bronchus, RBI, and RUL/RML/RLL bronchi to the segmental and subsegmental levels. No active bleeding noted. Mucosa appeared erythematous in right lower lobe. Clear secretions noted through right lower lobe and middle lobe. Then the scope was left bronchial tree was assessed to include the left mainstem bronchus, [place], Lingula, and LLL bronchi to the segmental and subsegmental level. The entire endobronchial mucosa of left mainstem, left upper lobe and left lower lobe subsegments was erythematous and with the introduction of bronchoscope, the mucosa bled easily obscuring the view. 5 cc cold saline instilled and controlled bleeding from the left tracheobronchial tree. Clear secretions mixed with blood were suctioned. 60 cc bronchoalveolar lavage obtained from right lower lobe the bronchoscope and obtained 25 cc [id number] clear fluid. BAL sent for bronchial fluid analysis, cultures, CD4: CD8. Attempted to place bronchial max in the right mainstem prior to proceeding with cryo biopsy, but it was difficult as the working channel was too congested with Pentax bronchoscope that I was using and bronchial max the same time. As it was difficult to place bronchial max-I decided not to do cryo biopsy. Instead, I used forceps needle under fluoroscopic guidance and obtained 4 transbronchial biopsies from the right lower lobe. The samples were placed in formalin and sent for histopathology. Cold saline was instilled to control bleeding from lower lobe subsegments. After making sure bleeding is adequately controlled, the procedure terminated and bronchoscope removed. Estimated Blood Loss: None Specimens: 1. Bronchoalveolar lavage was taken from right lower lobe and sent for bronchial Cell count, cultures, flow cytometry for CD4: CD8. 2. For transbronchial biopsies sent in formalin for histopathology Complications:None; patient tolerated the procedure well. Complications: None-post procedure chest x-ray did not show any pneumothorax. Jacques Bear MD Pulmonary critical Care Medicine [facility] Related Problem List Diagnoses (1) Interstitial lung disease: (2) Long-term exposure involving bird droppings: (3) Ex-smoker:
[2021-10-23] MEDS: lidocaine 4% PF 5 mL INJ INHALATION (09:02)
[2021-10-23 10:28] LABS: Apprearance, Bronch Wash Bloody (CLEAR); Color, Bronc Wash Red; Total Cells Counted Bronch 300
[2021-10-23 10:31] LABS: Bronch Source Right Lower Lobe; PATH Referral Yes
--- NOTE | 2021-10-23 10:53 | PC.NURSE ---
Home O2 eval ordered by Dr. Bear. Home O2 eval completed by respiratory care services. Patient qualified for home O2 per respiratory care. HOME will be delivering oxygen to patient and then patient will be able to be discharged.
[2021-10-25 13:09] LABS: Leukemia Profile (BBPL) See Report; Lymphoma Profile (BBPL) See Report
== END 2021-10-23 12:27 | disposition home or self-care (01) ==
PROVIDERS: PCP Nurse Practitioner Family; Visit Provider Internal Medicine Pulmonary Disease
PROC: 0BJ08ZZ Inspection of Tracheobronchial Tree, Via Natural or Artificial Opening Endoscopic (ICD-10-PCS; CPT 31622; principal; 2021-10-23 07:00)
DX: J84.9 Interstitial pulmonary disease, unspecified (principal); Z77.29 Contact with and (suspected) exposure to other hazardous substances; Z87.891 Personal history of nicotine dependence; I10 Essential (primary) hypertension; E11.9 Type 2 diabetes mellitus without complications; E66.01 Morbid (severe) obesity due to excess calories; Z68.36 Body mass index [BMI] 36.0-36.9, adult; Z84.89 Family history of other specified conditions
CPT/HCPCS: 31624; 31628; 36416; 71045; 76000; 80500; 82962; 87015; 87070; 87102; 87116; 87205; 87206; 87801; 88184; 88185; 88305; 89050; 94640; J1100; J2405; J2704; J2710; J3010; J3490; J7030

== ENCOUNTER → 2021-11-08 15:03 | Outpatient (BNVA) | payer MEDICARE, SELFPAY | PROVIDERS: PCP Nurse Practitioner Family; Visit Provider Internal Medicine Pulmonary Disease | DX: J84.9 Interstitial pulmonary disease, unspecified (principal); R06.02 Shortness of breath; J22 Unspecified acute lower respiratory infection; Z87.891 Personal history of nicotine dependence; I10 Essential (primary) hypertension; E11.8 Type 2 diabetes mellitus with unspecified complications | CPT/HCPCS: 99214 ==

== ENCOUNTER → 2022-02-07 16:02 | Outpatient (BNVA) | payer MEDICARE, SELFPAY | PROVIDERS: PCP Nurse Practitioner Family; Visit Provider Registered Nurse Neonatal Intensive Care | DX: Z20.822 Contact with and (suspected) exposure to COVID-19 (principal) | CPT/HCPCS: 87635 ==

== ENCOUNTER → 2022-03-08 07:40 | Outpatient (BNVA) | payer MEDICARE, SELFPAY | PROVIDERS: PCP Nurse Practitioner Family; Visit Provider Clinical Nurse Specialist Adult Health | DX: R30.0 Dysuria (principal); E11.9 Type 2 diabetes mellitus without complications | CPT/HCPCS: 81000 ==

== ENCOUNTER → 2022-03-11 08:42 | Outpatient (BNVA) | payer MEDICARE, SELFPAY | PROVIDERS: PCP Clinical Nurse Specialist Adult Health; Visit Provider Internal Medicine Pulmonary Disease | DX: J84.89 Other specified interstitial pulmonary diseases (principal); Z87.891 Personal history of nicotine dependence; J44.9 Chronic obstructive pulmonary disease, unspecified; Z99.81 Dependence on supplemental oxygen; N39.0 Urinary tract infection, site not specified | CPT/HCPCS: 99214 ==

== ENCOUNTER → 2022-04-04 07:53 | Outpatient (BNVA) | payer MEDICARE, SELFPAY | PROVIDERS: PCP Clinical Nurse Specialist Adult Health; Visit Provider Clinical Nurse Specialist Adult Health | DX: E11.9 Type 2 diabetes mellitus without complications (principal); E78.5 Hyperlipidemia, unspecified; J44.9 Chronic obstructive pulmonary disease, unspecified; E78.2 Mixed hyperlipidemia | CPT/HCPCS: 80053; 80061; 83036; 85025 ==

== ENCOUNTER 2022-06-18 11:39 | Outpatient (CLI) | payer MEDICARE, SELFPAY ==
--- NOTE | 2022-06-18 09:00 | CT_ITS ---
WS: [id number] CT CHEST TECHNIQUE: Noncontrast CT of the chest with coronal and sagittal reformatted images. High-resolution CT with inspiration, expiration and prone images CLINICAL INFORMATION: HRCT COMPARISON: CT chest September 21, 2021 DLP: 2978.[address] scans at [facility] use at least one of these dose optimization techniques: automated e xposure control; mA and/or kV adjustment per patient size (includes targeted exams where dose is matc hed to clinical indication); or iterative reconstruction. FINDINGS: Chronic emphysematous changes. No acute pulmonary infiltrates. No focal consolidation or pleural flui d. Suggestion of a tiny amount of developing subpleural honeycombing in the RIGHT greater than LEFT lowe r lobes. Recommend continued surveillance. No traction bronchiectasis. Slight bibasilar atelectasis. A few scattered reticular interstitial opacities. Previously described bilateral scattered parenchymal opacities have resolved. No significant air trap ping on the expiratory imaging. Calcified breast implants with capsular calcifications. No axillary lymphadenopathy. No mediastinal o r hilar lymphadenopathy. Aortic calcification. Normal GE junction. Noncontrast spleen is normal. Norm al GE junction. Splenic artery calcification. CT/CT chest wo con [id number] IMPRESSION: 1. Suggestion of a tiny amount of developing subpleural honeycombing in the RI GHT greater than LEFT lower lobes. Recommend continued surveillance. No tractio n bronchiectasis. 2. Previously described patchy parenchymal opacities have resolved compared to the previous CT. 3. Moderate chronic emphysematous changes. No suspicious pulmonary parenchymal opacities today. 4. No mediastinal or hilar lymphadenopathy. 5. No significant air trapping on the expiratory imaging
== END 2022-06-18 11:40 | disposition home or self-care (01) ==
LOC: RAD 11:41
PROVIDERS: PCP Clinical Nurse Specialist Adult Health; Visit Provider Internal Medicine Pulmonary Disease
DX: J84.9 Interstitial pulmonary disease, unspecified (principal); J44.9 Chronic obstructive pulmonary disease, unspecified
CPT/HCPCS: 71250

== ENCOUNTER 2022-06-18 11:40 | Outpatient (CLI) | payer MEDICARE, SELFPAY ==
--- NOTE | 2022-06-18 11:15 | USCV_ITS ---
Shanae Baxter Age: 71 Gender: F : 1950 Exam Date: 06/18/2022 11:59 Ordering Phys: Jacques Bear MD Technologist: Willem Swartz Exam Location: [facility] – [place] Indication: short of breath BP: 134 / 74 HR: 74 Rhythm: Sinus Technical Quality: Adequate MEASUREMENTS (Male / Female) Normal Values 2D ECHO LV Diastolic Diameter PLAX 3.7 cm 4.2 - 5.9 / 3.9 - 5.3 cm LV Systolic Diameter PLAX 2.2 cm IVS Diastolic Thickness 1.6 cm 0.6 - 1.0 / 0.6 - 0.9 cm IVS Systolic Thickness 1.5 cm LVPW Diastolic Thickness 1.0 cm 0.6 - 1.0 / 0.6 - 0.9 cm LVPW Systolic Thickness 1.8 cm LVOT Diameter 2.0 cm LV Ejection Fraction 2D Teich 70.9 % LV Ejection Fraction MOD 2C 67.3 % LV Ejection Fraction 2C AL 68.2 % LA Diameter 4.1 cm LA Width 3.2 cm M-MODE Aortic Annulus Diameter 3.2 cm LA Ao Ratio MM 1.3 MV E Point Septal Separation 0.6 cm DOPPLER AV Peak Velocity 173.0 cm/s LVOT Peak Velocity 104.0 cm/s AV Area Cont Eq vti 2.1 cm squared AV Area Cont Eq pk 1.9 cm squared MV Area PHT 5.0 cm squared Mitral E to A Ratio 1.2 MV E' Velocity 54.5 cm/s Mitral E to MV E' Ratio 11.0 Mitral E to LV E' Lateral Ratio 12.8 Mitral E to LV E' Septal Ratio 9.6 TR Peak Velocity 379.0 cm/s TR Peak Gradient 57.5 mmHg TV Peak E Velocity 103.0 cm/s Right Atrial Pressure 3.0 mmHg Pulmonary Artery Systolic Pressu 60.5 mmHg RV Acceleration Time 0.2 s FINDINGS Left Ventricle Normal LV size and ejection fraction of 67%. No gross wall motion normalities. Right Ventricle Normal right ventricular size and systolic function. Mildly increased right ventricular size. Transverse echodensity near to the apex Right Atrium Mildly increased right atrial size. Left Atrium The left atrium is normal in size. Mitral Valve No gross abnormalities noted Aortic Valve Thickened aortic valve. Tricuspid Valve Mild tricuspid valve regurgitation. Estimated pulmonary artery peak systolic pressure 61 mmHg Pulmonic Valve Pulmonic valve not well visualized. Pericardium Normal pericardium without effusion. Aorta Normal aortic annulus size. IVC Inferior vena cava not visualized. CONCLUSIONS Normal LV size and ejection fraction of 67%. No gross wall motion normalities. Normal right ventricular size and systolic function. Transverse density through the right ventricular apex, may suggest moderator band. Mildly dilated right atrium and right ventricle. Thickened aortic valve. Pulmonary hypertension with an estimated pulmonary artery peak systolic pressure of 61 mmHg Mild tricuspid valve regurgitation. Compared to the study from 10/15/2021, there may not be a significant change except for the pulmonary hypertension and mildly dilated right atrium right ventricle Dr Krystle Merlos MD FACC (Electronically Signed) Final Date: 19 June 2022 21:17 S
== END 2022-06-18 11:41 | disposition home or self-care (01) ==
LOC: RAD 11:41
PROVIDERS: PCP Clinical Nurse Specialist Adult Health; Visit Provider Internal Medicine Pulmonary Disease
DX: R06.09 Other forms of dyspnea (principal); I51.7 Cardiomegaly; I35.8 Other nonrheumatic aortic valve disorders; I27.20 Pulmonary hypertension, unspecified; I07.1 Rheumatic tricuspid insufficiency; J84.9 Interstitial pulmonary disease, unspecified; J44.9 Chronic obstructive pulmonary disease, unspecified
CPT/HCPCS: 71250; 93306

== ENCOUNTER 2022-06-20 08:07 | Outpatient (CLI) | payer MEDICARE, SELFPAY | END 2022-06-20 08:08 | disposition home or self-care (01) | PROVIDERS: PCP Clinical Nurse Specialist Adult Health; Visit Provider Internal Medicine Pulmonary Disease | DX: J84.9 Interstitial pulmonary disease, unspecified (principal); R06.09 Other forms of dyspnea; Z87.891 Personal history of nicotine dependence | CPT/HCPCS: 94060; 94726; 94729; J7613 ==

== ENCOUNTER → 2022-08-20 13:04 | Outpatient (BNVA) | payer MEDICARE, SELFPAY | PROVIDERS: PCP Clinical Nurse Specialist Adult Health; Visit Provider Internal Medicine | DX: I27.20 Pulmonary hypertension, unspecified (principal); E78.2 Mixed hyperlipidemia; J44.9 Chronic obstructive pulmonary disease, unspecified; J84.9 Interstitial pulmonary disease, unspecified; Z87.891 Personal history of nicotine dependence; E11.43 Type 2 diabetes mellitus with diabetic autonomic (poly)neuropathy; Z79.84 Long term (current) use of oral hypoglycemic drugs | CPT/HCPCS: 99204 ==

== ENCOUNTER 2022-08-23 07:44 | Outpatient (CLI) | payer MEDICARE, SELFPAY ==
[2022-08-23 08:40] LABS: Basophils % 0.4 %; Eosinophils # 0.2 10^3/uL (0.0-0.8); Hematocrit 44.3 % (37.0-47.0); Lymphocytes # 2.2 10^3/uL (0.8-4.8); Lymphocytes % 28.9 %; Mean Corpuscular HGB Conc 31.6 g/dL (30.0-36.0); Mean Corpuscular Hemoglobin 28.6 pg (28.0-34.0); Mean Corpuscular Volume 90.6 fl (81-99); Mean Platelet Volume 10.6 fL (7.4-10.4); Monocytes # 0.7 10^3/uL (0.2-0.9); Monocytes % 9.1 %; Neutrophils # 4.55 10^3/uL (1.8-7.7); Neutrophils % 59.3 %; Nucleated Red Blood Cells % 0 %; Platelet Count 202 10^3/cmm (130-400); Red Blood Count 4.89 10^6/uL (4.1-5.3); Red Cell Distribution Width 12.6 % (12.1-15.1); White Blood Count 7.7 10^3/uL (4.0-10.0)
[2022-08-23 08:54] LABS: INR 0.94 (0.83-1.21); Prothrombin Time (Patient) 12.9 Seconds (12.0-15.1)
[2022-08-23 09:08] LABS: Anion Gap 14.9 (5-19); Blood Urea Nitrogen 22 mg/dL (8-23); Calcium 9.1 mg/dL (8.5-10.5); Carbon Dioxide 28 mmol/L (22-29); Chloride 99 mmol/L (98-107); Glomerular Filtration Rate 99.1 mL/min (90-130); Glucose 162 mg/dL (65-115); Osmolality Calculated 293 mOsm/kg (285-295); Potassium 3.9 mmol/L (3.5-5.1); Sodium 138 mmol/L (136-145)
== END 2022-08-23 07:45 | disposition home or self-care (01) ==
LOC: LAB 07:48
PROVIDERS: PCP Clinical Nurse Specialist Adult Health; Visit Provider Internal Medicine
DX: I27.20 Pulmonary hypertension, unspecified (principal); Z98.890 Other specified postprocedural states
CPT/HCPCS: 36415; 80048; 85025; 85610

== ENCOUNTER 2022-08-26 07:35 | Outpatient (CLI) | payer MEDICARE, SELFPAY ==
[2022-08-26] VITALS (9 sets, daily range): BP systolic 122–173; BP diastolic 66–95; PULSE 69–81; RESP 16–22; TEMP 36.7; O2SAT 90–97; BMI 40.1
--- NOTE | 2022-08-26 07:30 | XACV_ITS ---
Ht: 168 cm Wt: 113 kg BSA: 2.35 m2 Gender: Female : 1950 Any Known Allergies: No known allergies Exam Priority: Routine Procedure(s): Procedure Description: Diagnostic procedure Procedure Description: Right Heart Catheterization Procedure Description: O2 saturation Diagnostic Cath Status: Elective Diagnostic Findings * INDICATION: Pulmonary hypertension. * Right heart cath findings: RA pressure: 14/8/8 mmHg RV pressure: 48/2/8 mmHg PCW: 12/14/12 mmHg PA pressure: 58/19 /32 mmHg AO saturation 92% RA saturation 65% PA saturation 66% TP mmHg Cardiac output: 5.9 L/min Cardiac index: 2.6 L/min/m2 PVR: 3.3 Moderate precapillary pulmonary hypertension . Conclusions 1. Moderate pre-capillary Pulmonary hypertension. 2. Normal cardiac output. Recommendations * Therapy per pulmonology team. Diagnostic RX Recommendation: medical therapy and/or counseling Pressures Phase:Rest RV : 50 / 0 / 9 @ 9:33:00 AM 48 / -2 / 8 @ 9:33:00 AM PA : 58 / 19 ( 32 ) @ 9:32:00 AM RA : a wave = 14 v wave = 8 mean = 8 @ 9:34:00 AM PCW : a wave = 12 v wave = 14 mean = 12 @ 9:31:00 AM O2 Content Phase:Rest PA : O2 Content O2: 65.7 @ 9:31:00 AM Saturations Phase:Rest AO : 92 @ 9:32:00 AM RA : 65 @ 9:34:00 AM PA : 66 @ 9:31:00 AM Cardiac Output Phase:Rest Dylon : 4 @ 9:55:46 AM Dylon Cardiac Index: 2 @ 9:55:46 AM Flow Phase:Rest Qp : 4 @ 9:55:46 AM Qs : 4 @ 9:55:46 AM Clinical Evaluation EBL: 5mL-10mL Procedural Details Procedure Consent Obtained. Current Diagnosis : Chest Pain. Pre-Procedure Time Out. Identified patient by full name and date of as verbalized by the patient/guarantor. Does the consent match the physician's order: Yes. Accurate & Complete Informed Consent: Yes. Inpatient/Outpatient History & Physical on Chart: Yes. If H&P is completed, is and addenduem needed: No; If yes, is the addendum complete: N/A. Visualize and Verify Site with Patient/Guarantor: N/A. Relevant Radiology Images available: N/A. The risks, benefits, and alternatives of sedation and/or procedure were discussed by physician. The patient agrees to continue. Procedure started. Correct patient, site and procedure confirmed by cath team. Current diagnosis: Pulmonary HTN. PERRLA. 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 Lungs clear x 5 lobes. IV Site on Arrival: 20 gauge in the right anticubital. IV Site on Arrival: 20 gauge in the left anticubital. IV Fluids: 0.9% NaCl at KVO. 0 mL infused prior to wharf labourer. Pre Procedural Pulses: bilateral posterior tibial was 2+. Pre Procedural Pulses: bilateral dorsalis pedis was 3+. Pre Procedural Pulses: bilateral radial was 3+. 02 off in prep for the RHC. right brachial was prepped with chloroprep then draped in the usual sterile fashion. right groin was prepped with chloroprep then draped in the usual sterile fashion. Physician notified. Baseline sample Acquired. HR: 71 BPM. Family updated prior to the start of the procedure. [facility] Clinical Fraility Score: 3: Managing Well. Geothermal Operations Manager Indications: PULMONARY HTN. Chest Pain Symptom Assessment: Dyspnea on Exertion. Cardiovascular Instability: No, stable. Physician arrived. Physician scrubbed in. Immediate Pre-Procedure Time Out. Correct Patient: Yes; Correct Procedure: Yes; Correct Site: Yes; Correct Patient Position: Yes; Correct Supplies: Yes; Dried Flammable Prep: Yes; Blood Products Available: N/A;. Wire inserted thru the 20 ga right ac access. Lidocaine 1% infiltrated to the right brachial. [place] MON catheter inserted. [place] wire inserted to advance the swan to postion in the PA. [place] wire removed. Pressure measurements obtained. Oximetry samples were obtained. Normal venous range: 60-85%. Normal arterial range: 95-100%. [place] out. Physician scrubbed out. Vital chart was stopped. A Manual Compression was successful obtaining hemostatsis at the Right Brachial Vein insertion site. Sheath(s) removed and manual pressure held until hemostasis was achieved. Sterile 4x4 and Op-site applied to the puncture site. No oozing or hematoma noted. Post sheath removal instructions were given and the patient verbalized understanding. Post Procedure: Pulses reassessed and unchanged. PERRLA. 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 No VTE prophylaxis required. Medication's Wasted: Lidocaine 1% = 2 ml. Medication's Wasted: Versed = 1 mg. Total IV fluids: 22 mL. Fluoro: 1:06. [id number]. Post-op diagnosis: Moderate Pulmonary HTN. Complications: None. Estimated blood loss: 5mL-10mL. Responsiveness - Normal response to verbal stimuli; alert and oriented, PERRLA. Airway - Unaffected, no intervention required; spontaneous ventilation. Circulation: W/N/L, pulses unchanged. Nausea/Vomiting: No. Procedure completed. Patient transferred by wheelchair to CPRU. Access Site Site: Right Brachial Vein Sheath Size: 6 Fr Hemostasis Method: Manual Compression Hemostasis Success: Successful Procedure Medications Start: 9:25 AM Stop: 9:25 AM Medication: Versed Amount: 1 mg Route: I.V. I, the attending physician, have reviewed and verified all procedure medications. Yes, all medications given per verbal order History/Risk Factors Hypertension: Yes Dyslipidemia: Yes Peripheral Arterial Disease (PAD): No Myocardial Infarction (IL): No Obesity: Yes Renal Disease: No Tobacco Use: Former Dialysis: Current Prior Interventions PCI: No CABG: No Valve Surgery: No Report Signatures Finalized by Andrea Menjivar MD on 08/28/2022 09:54 AM
[2022-08-26 08:07] LABS: Glucose Point of Care 203 mg/dL (70-110)
--- NOTE | 2022-08-26 09:22 | W.PM.OPSUD ---
Surgery/Procedure H&P Update DATE OF PROCEDURE: August 26, 2022 DATE H&P PERFORMED: 08/20/22 H&P UPDATE INFORMATION: I have reviewed H&P completed within last 30 days, I have examined patient prior to procedure and No changes to prior documentation PREOP DIAGNOSIS: Pulmonary hypertension PRIMARY INDICATION FOR PROCEDURE: Pulmonary hypertension PLANNED PROCEDURE: Operation Date: 08/26/22 08:30 Proposed Procedures p Right heart cath 26523,I27.20(Right) - Andrea Menjivar M.D PATIENT REASSESSED PRIOR TO SEDATION, WITH NO CHANGE NOTED: Yes PHYSICAL EXAM: alert, oriented x 3, clear to auscultation bilaterally and regular rate & rhythm AIRWAY EVAL/ANESTHESIA PLAN: ASA III, Local Anesthesia, Risks, benefits & alternatives of sedation and/or procedure discussed and Patient agrees to continue as planned ADDITIONAL INFORMATION: Moderate sedation
[2022-08-26 09:42] LABS: Arterial Blood Gas Hematocrit 44.1 % (37-47); Blood Gas Operator Identificat PA; Blood Gas Sample Site Not specified; Blood Gas Sample Type Not specified; HGB O2 Sat 64.1 % (95-100); Methemoglobin 1.6 % (0.4-1.5); Oxygen Device ROOM AIR; Total Hemoglobin 14.4 g/dL (12-16)
[2022-08-26 09:43] LABS: Arterial Blood Gas Hematocrit 43.8 % (37-47); Blood Gas Operator Identificat RA; Blood Gas Sample Site Not specified; Blood Gas Sample Type Not specified; HGB O2 Sat 63.9 % (95-100); Methemoglobin 1.4 % (0.4-1.5); Oxygen Device ROOM AIR; Total Hemoglobin 14.3 g/dL (12-16)
== END 2022-08-26 11:30 | disposition home or self-care (01) ==
PROVIDERS: PCP Clinical Nurse Specialist Adult Health; Visit Provider Internal Medicine
DX: I27.20 Pulmonary hypertension, unspecified (principal); I10 Essential (primary) hypertension; E78.5 Hyperlipidemia, unspecified; E66.9 Obesity, unspecified; Z68.41 Body mass index [BMI] 40.0-44.9, adult; Z87.891 Personal history of nicotine dependence; Z79.82 Long term (current) use of aspirin; Z79.84 Long term (current) use of oral hypoglycemic drugs; E11.9 Type 2 diabetes mellitus without complications
CPT/HCPCS: 36415; 36416; 82810; 82962; 93451; 96361; 96365; 99152; 99153; C1751; C1769; C1894; J1644; J2250; J3010; J7030

== ENCOUNTER → 2022-09-04 09:50 | Outpatient (BNVA) | payer MEDICARE, SELFPAY | PROVIDERS: PCP Clinical Nurse Specialist Adult Health; Visit Provider Nurse Practitioner Family | DX: I27.20 Pulmonary hypertension, unspecified (principal); Z87.891 Personal history of nicotine dependence | CPT/HCPCS: 99213 ==

== ENCOUNTER → 2022-09-10 16:03 | Outpatient (BNVA) | payer MEDICARE, SELFPAY | PROVIDERS: PCP Clinical Nurse Specialist Adult Health; Visit Provider Urology | DX: N30.80 Other cystitis without hematuria (principal); R39.15 Urgency of urination | CPT/HCPCS: 81003; 87077; 87086; 87186; 99213 ==

== ENCOUNTER → 2022-10-10 10:38 | Outpatient (BNVA) | payer MEDICARE, SELFPAY | PROVIDERS: PCP Clinical Nurse Specialist Adult Health; Visit Provider Internal Medicine Pulmonary Disease | DX: Z87.891 Personal history of nicotine dependence; J44.9 Chronic obstructive pulmonary disease, unspecified; R06.02 Shortness of breath; G47.33 Obstructive sleep apnea (adult) (pediatric); J84.89 Other specified interstitial pulmonary diseases; I27.20 Pulmonary hypertension, unspecified | CPT/HCPCS: 99214 ==

== ENCOUNTER → 2022-10-30 15:12 | Outpatient (BNVA) | payer MEDICARE, SELFPAY | PROVIDERS: PCP Clinical Nurse Specialist Adult Health; Visit Provider Urology | DX: Z87.440 Personal history of urinary (tract) infections (principal); N39.41 Urge incontinence | CPT/HCPCS: 51798; 81003; 99213 ==

== ENCOUNTER 2022-12-17 08:52 | Outpatient (CLI) | payer MEDICARE, SELFPAY ==
[2022-12-17 09:10] VITALS: PULSE 71; RESP 18; O2SAT 95
[2022-12-17] MEDS: albuterol 2.5 mg/3 mL Neb INHALATION (09:10)
[2022-12-17 09:15] VITALS: PULSE 74
[2022-12-17 09:30] VITALS: BP 140/67; BP 141/85
== END 2022-12-17 08:53 | disposition home or self-care (01) ==
LOC: RT 08:54
PROVIDERS: PCP Clinical Nurse Specialist Adult Health; Visit Provider Internal Medicine Pulmonary Disease
DX: J84.9 Interstitial pulmonary disease, unspecified (principal); Z87.891 Personal history of nicotine dependence
CPT/HCPCS: 94060; 94618; 94726; 94729; J7613

== ENCOUNTER → 2022-12-18 13:34 | Outpatient (BNVA) | payer MEDICARE, SELFPAY | PROVIDERS: PCP Clinical Nurse Specialist Adult Health; Visit Provider Urology | DX: N39.0 Urinary tract infection, site not specified (principal); N39.41 Urge incontinence | CPT/HCPCS: 81003; 99213 ==

== ENCOUNTER → 2023-01-29 12:54 | Outpatient (BNVA) | payer MEDICARE, SELFPAY | PROVIDERS: PCP Clinical Nurse Specialist Adult Health; Visit Provider Clinical Nurse Specialist Adult Health | DX: E11.9 Type 2 diabetes mellitus without complications (principal); J44.1 Chronic obstructive pulmonary disease with (acute) exacerbation; I27.20 Pulmonary hypertension, unspecified | CPT/HCPCS: 80053; 80061; 83036; 85025 ==

== ENCOUNTER → 2023-03-26 13:42 | Outpatient (BNVA) | payer MEDICARE, SELFPAY | PROVIDERS: PCP Clinical Nurse Specialist Adult Health; Visit Provider Internal Medicine | DX: I27.20 Pulmonary hypertension, unspecified (principal); E78.2 Mixed hyperlipidemia; J44.9 Chronic obstructive pulmonary disease, unspecified; J84.9 Interstitial pulmonary disease, unspecified; E11.43 Type 2 diabetes mellitus with diabetic autonomic (poly)neuropathy; Z79.84 Long term (current) use of oral hypoglycemic drugs; Z87.891 Personal history of nicotine dependence; I48.91 Unspecified atrial fibrillation; Z79.01 Long term (current) use of anticoagulants | CPT/HCPCS: 99214 ==

== ENCOUNTER 2023-03-31 07:19 | Outpatient (CLI) | payer MEDICARE, SELFPAY ==
--- NOTE | 2023-03-31 08:00 | USCV_ITS ---
Shanae Baxter Age: 72 Gender: F : 1950 Exam Date: 03/31/2023 08:12 Ordering Phys: Andrea Menjivar M.D ([email or web address]) Technologist: Mera Kern [place] [facility] [place]: sob BP: 130 / 64 HR: 62 Rhythm: Sinus Technical Quality: Technically difficult study MEASUREMENTS (Male / Female) Normal Values 2D ECHO LV Diastolic Diameter PLAX 4.6 cm 4.2 - 5.9 / 3.9 - 5.3 cm LV Systolic Diameter PLAX 2.2 cm IVS Diastolic Thickness 0.8 cm 0.6 - 1.0 / 0.6 - 0.9 cm IVS Systolic Thickness 1.7 cm LVPW Diastolic Thickness 0.7 cm 0.6 - 1.0 / 0.6 - 0.9 cm LVPW Systolic Thickness 2.2 cm LVOT Diameter 2.0 cm LV Ejection Fraction 2D Teich 84.2 % LV Ejection Fraction MOD 2C 72.9 % LV Ejection Fraction 2C AL 74.7 % LA Width 3.9 cm LA Height 4.4 cm RA Width 4.6 cm RA Height 4.2 cm Aorta at Sinotubular Diameter 1.6 cm IVC Diameter 1.7 cm DOPPLER AV Peak Velocity 132.0 cm/s LVOT Peak Velocity 123.0 cm/s AV Area Cont Eq vti 2.9 cm squared AV Area Cont Eq pk 2.9 cm squared MV Peak Velocity 145.0 cm/s MV Area PHT 3.5 cm squared Mitral E to A Ratio 1.0 MV E' Velocity 114.0 cm/s TR Peak Velocity 121.2 cm/s TR Peak Gradient 5.9 mmHg Right Atrial Pressure 5.0 mmHg Pulmonary Artery Systolic Pressu 10.9 mmHg PV Peak Velocity 103.0 cm/s RV Acceleration Time 0.2 s RV Ejection Time 0.4 s RV AcT/ET 0.5 FINDINGS Left Ventricle Normal in size. LV systolic function normal with EF of 60 to 65%. No regional wall motion abnormalities are seen. Right Ventricle Not well visualized Right Atrium Grossly normal Left Atrium Grossly normal Mitral Valve Grossly normal. Trace mitral regurgitation. Aortic Valve Not well-visualized. No significant stenosis or regurgitation. Tricuspid Valve Trace tricuspid regurgitation. Insufficient TR jet to calculate RVSP Pulmonic Valve Not well visualized Pericardium Normal Aorta Not well visualized IVC Not well visualized CONCLUSIONS Technically very limited quality echocardiogram because of poor ultrasonic windows. LV systolic function is normal with EF of 60 to 65%. Trace mitral regurgitation Trace tricuspid regurgitation Accurate comparison with prior echocardiogram not possible because of limited visualization. Andrea Menjivar MD (Electronically Signed) Final Date: 13 April 2023 13:47 S
[2023-03-31] MEDS: perflutren protein-a microsphr 0.22 mg/mL SDV 3 mL IV (09:01)
== END 2023-03-31 07:20 | disposition home or self-care (01) ==
PROVIDERS: PCP Clinical Nurse Specialist Adult Health; Visit Provider Internal Medicine
DX: I08.1 Rheumatic disorders of both mitral and tricuspid valves (principal); R07.9 Chest pain, unspecified; R06.02 Shortness of breath
CPT/HCPCS: C8929; Q9956

== ENCOUNTER → 2023-04-29 09:29 | Outpatient (BNVA) | payer MEDICARE, SELFPAY | PROVIDERS: PCP Clinical Nurse Specialist Adult Health; Visit Provider Clinical Nurse Specialist Adult Health | DX: E11.43 Type 2 diabetes mellitus with diabetic autonomic (poly)neuropathy (principal) | CPT/HCPCS: 80048; 83036 ==

== ENCOUNTER → 2023-05-12 09:25 | Outpatient (BNVA) | payer MEDICARE, SELFPAY | PROVIDERS: PCP Clinical Nurse Specialist Adult Health; Visit Provider Internal Medicine Pulmonary Disease | DX: J84.9 Interstitial pulmonary disease, unspecified (principal); J44.9 Chronic obstructive pulmonary disease, unspecified; Z87.891 Personal history of nicotine dependence; G47.33 Obstructive sleep apnea (adult) (pediatric); I27.20 Pulmonary hypertension, unspecified; Z99.89 Dependence on other enabling machines and devices | CPT/HCPCS: 99214 ==

== ENCOUNTER 2023-05-13 06:31 | Outpatient (CLI) | payer MEDICARE, SELFPAY ==
--- NOTE | 2023-05-13 07:00 | CT_ITS ---
WS: [id number] CT CHEST CT-HIGH RESOLUTION, NONCONTRAST. HISTORY: Interstitial lung disease. Technique: High-resolution chest CT is performed in inspiration, expiration, supine and prone positio blossom. All CT scans at [facility] use at least one of these dose optimization techniques: automated exposure control; mA and/or kV adjustment per patient size (includes targeted exams where dose is mat ched to clinical indication); or iterative reconstruction. DLP: 1885.78 mGy.cm COMPARISON: 06/18/2022 Findings: Lungs are hyperinflated. No mass or nodule. Cannot confirm honeycombing or bronchiectasis. There are no stacked cystic areas to suggest honeycombing on today's examination. There are a few carl y small tiny peripheral cystic areas in the lower lung adames but these may be related to emphysema. There is interstitial thickening within the periphery of the lower lung adames. Interstitial thickeni ng is not contained in just the lower lung adames. Very mild hazy attenuation and groundglass attenua tion in the RIGHT upper lobe. No pleural or pericardial effusions. During expiration there is volume loss with no obvious air adrián ing appreciated. During prone positioning the areas of interstitial and subpleural thickening did not improve. Bilateral partially calcified breast implants. Mild atherosclerosis aorta. Pulmonary artery size just slightly greater than the aorta. A few scattered coronary artery calcifications. Mild cardiomegaly. Small hiatal hernia. No osseous destruction. Impression: 1. Cannot confirm honeycombing or bronchiectasis. 2. There is mild peripheral interstitial thickening in the upper and lower lung adames with no areas of consolidation. No air trapping. There are a few scattered areas of groundglass attenuation which m ay be related to hypersensitivity pneumonia. Additional differential to consider is NSIP. There are o nly a few areas of groundglass attenuation
== END 2023-05-13 06:32 | disposition home or self-care (01) ==
LOC: RAD 06:32
PROVIDERS: PCP Clinical Nurse Specialist Adult Health; Visit Provider Internal Medicine Pulmonary Disease
DX: J84.9 Interstitial pulmonary disease, unspecified (principal); I27.20 Pulmonary hypertension, unspecified; Z87.891 Personal history of nicotine dependence
CPT/HCPCS: 71250

== ENCOUNTER → 2023-08-21 14:41 | Outpatient (BNVA) | payer MEDICARE, SELFPAY | PROVIDERS: PCP Clinical Nurse Specialist Adult Health; Visit Provider Internal Medicine Pulmonary Disease | DX: J84.9 Interstitial pulmonary disease, unspecified (principal); J84.89 Other specified interstitial pulmonary diseases; J44.9 Chronic obstructive pulmonary disease, unspecified; Z87.891 Personal history of nicotine dependence; G47.33 Obstructive sleep apnea (adult) (pediatric); I27.20 Pulmonary hypertension, unspecified | CPT/HCPCS: 99214 ==

== ENCOUNTER → 2023-09-29 14:58 | Outpatient (BNVA) | payer MEDICARE, SELFPAY | PROVIDERS: PCP Clinical Nurse Specialist Adult Health; Visit Provider Internal Medicine | DX: I27.20 Pulmonary hypertension, unspecified (principal); E78.2 Mixed hyperlipidemia; J44.9 Chronic obstructive pulmonary disease, unspecified; J84.9 Interstitial pulmonary disease, unspecified; E11.43 Type 2 diabetes mellitus with diabetic autonomic (poly)neuropathy; Z87.891 Personal history of nicotine dependence; I48.20 Chronic atrial fibrillation, unspecified; Z79.01 Long term (current) use of anticoagulants; Z79.82 Long term (current) use of aspirin; Z79.84 Long term (current) use of oral hypoglycemic drugs | CPT/HCPCS: 99214 ==

== ENCOUNTER 2023-10-08 07:26 | Outpatient (CLI) | payer MEDICARE, SELFPAY ==
[2023-10-08 08:20] VITALS: BMI 37.8
--- NOTE | 2023-10-08 08:27 | NMCV_ITS ---
NM hattie perf SPECT r/s* [id number] Shanae Baxter Age: 73 Gender: F : 1950 Exam Date: 10/08/2023 08:27 Ordering Phys: Andrea Menjivar M.D ([email or web address]) Technologist: ULYSSES Gonzalez Exam Location: [facility] Indications: CHEST PAIN STRESS TEST Please see separate stress test report in [facility] for full findings IMAGE PROTOCOL Rest/Stress 1 Lexiscan Day Radiopharmaceutical Dose (mCi) Administration Site Administered by Rest: Tc-99m 10.8 IV ULYSSES Geronimo Sestamibi Stress:Tc-99m 32.4 IV ULYSSES Geronimo Sestamibi Rest: 08-Oct-2023 60 Discovery 630 Stress: 08-Oct-2023 30 Discovery 630 0.4mg Lexiscan. Images obtained in supine and prone position. SPECT RESULTS Technical Quality: Excellent Raw Data Analysis: Normal Image Corrections: No attenuation or motion correction applied Summed Stress Score: 6 Summed Rest Score: 0 Summed Difference Score: 6 PERFUSION FINDINGS There is large in size, moderate intensity reversible perfusion defect noted in inferolateral and lateral esquivel. This is consistent with large area of ischemia seen in left circumflex artery territory. FUNCTIONAL RESULTS (calculated via Gated SPECT) Stress Image LV EF (%): 82 Stress EDV (mL):74 TID: 0.8 Stress ESV (mL):13 FUNCTIONAL FINDINGS: There is normal left ventricular systolic function. IMPRESSIONS 1. Abnormal myocardial perfusion imaging with large area of ischemia in the left circumflex artery territory. 2. LV systolic function is normal Andrea Menjivar MD (Electronically Signed) Final Date: 10 October 2023 12:41 S
--- NOTE | 2023-10-08 08:27 | ECG_ITS ---
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 Interpretive Statements NAME OF STUDY: LEXISCAN SESTAMIBI STRESS TEST INDICATION: [Chest Pain/Shortness of breath] Procedure: At the baseline, the blood pressure was 140/79 mmHg with a heart rate of 65 bpm. The electrocardiogram showed normal sinus rhythm, normal axis with normal ST and T's. The Lexiscan was infused over a period of 20 seconds. A total of 0.4 mg of Lexiscan was infused. The stress phase was continued for a total of 5 minutes. Heart rate was at the end of stress phase was 79 bpm and a blood pressure of 147/65 mmHg. The EKG at the peak infusion revealed normal sinus rhythm with no significant ST-T wave changes. Sestamibi was injected 20 seconds after the Lexiscan infusion. Blood pressure at the end of recovery phase was 136/64 mmHg with a heart rate of 77 bpm. Conclusion: 1. Normal EKG response to Lexiscan infusion 2. No Lexiscan induced chest pain or cardiac arrhythmia. 3. Normal blood pressure and heart rate response. 4. Sestamibi/sestamibi perfusion scan pending; see separate report. Electronically Signed On 10-10-2023 12:28:55 CAD DRAFTSMAN by Andrea Menjivar M.D. [email or web address]
[2023-10-08] MEDS: regadenoson 0.4 Mg/5 ml Syringe IVP (09:53)
[2023-10-08 10:10] VITALS: BP 145/72; PULSE 86
== END 2023-10-08 07:27 | disposition home or self-care (01) ==
PROVIDERS: PCP Clinical Nurse Specialist Adult Health; Visit Provider Internal Medicine
DX: I25.9 Chronic ischemic heart disease, unspecified (principal)
CPT/HCPCS: 36415; 78452; 93017; 96374; A9500; J2785

== ENCOUNTER 2023-10-17 06:02 | Outpatient (CLI) | payer MEDICARE, SELFPAY ==
[2023-10-17] VITALS (15 sets, daily range): BP systolic 134–181; BP diastolic 58–88; PULSE 50–66; RESP 14–22; TEMP 36.5; O2SAT 93–97; BMI 38.2
--- NOTE | 2023-10-17 06:00 | XACV_ITS ---
Exam Room: 2 Ht: 168 cm Wt: 108 kg BSA: 2.29 m2 Gender: Female : 1950 Any Known Allergies: No known allergies Exam Priority: Routine Procedure(s): Procedure Description: Diagnostic procedure Procedure Description: Left Heart Catheterization Procedure Description: Left ventriculography Procedure Description: Coronary Angiography Diagnostic Cath Status: Elective Diagnostic Findings * INDICATION: Chest pain/abnormal stress test. * Left Main has no significant disease. * Left Anterior Descending has no significant disease. * Right Coronary Artery has no significant disease. * Mid Circumflex: luminal irregularities 20% stenosis, SARAH: 3 flow. * Coronary angiography shows right dominance. Conclusions 1. Non-obstructive coronary artery disease. 2. Normal left ventricular systolic function. Ejection fraction of 65%. Recommendations * Aggressive risk factor modification. * Outpatient cardiology follow up in 2-4 weeks. Interventional RX Recommendation: medical therapy and/or counseling Diagnostic RX Recommendation: medical therapy and/or counseling Anticoagulation: Heparin Ventriculography Ejection Fraction: 65.0 % Pressures Phase:Rest AO : 133 / 67 ( 94 ) @ 8:01:00 AM 163 / 77 ( 111 ) @ 8:08:00 AM 161 / 76 ( 111 ) @ 8:08:00 AM LV : 163 / 3 / 28 @ 8:07:00 AM 173 / 17 / 28 @ 8:08:00 AM 165 / 13 / 25 @ 8:08:00 AM Valves Phase:DefaultPhase AV : 2.0 @ 8:17:26 AM 2.0 @ 8:17:26 AM AV Mean Gradient: 0.0 @ 8:17:26 AM 0.0 @ 8:17:26 AM Clinical Evaluation EBL: 5mL-10mL Procedural Details Procedure Consent Obtained. Pre-Procedure Time Out. Identified patient by full name and date of as verbalized by the patient/guarantor. Does the consent match the physician's order: Yes. Accurate & Complete Informed Consent: Yes. Inpatient/Outpatient History & Physical on Chart: Yes. If H&P is completed, is and addenduem needed: No. Visualize and Verify Site with Patient/Guarantor: N/A. Relevant Radiology Images available: Yes. The risks, benefits, and alternatives of sedation and/or procedure were discussed by physician. The patient agrees to continue. Procedure started. [facility] Clinical Fraility Score: 4: Vulnerable. 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 Chest Pain Symptom Assessment: Typical Angina Symptoms. Cardiovascular Instability: No. Correct patient, site and procedure confirmed by cath team. PERRLA. Strong, equal hand titrator bilaterally. Lungs clear x 5 lobes. IV Site on Arrival: 20 gauge in the left anticubital. IV Fluids: 0.9% NaCl at KVO. 0 mL infused prior to laboratory engineer. Pre Procedural Pulses: right posterior tibial was Doppled. Pre Procedural Pulses: bilateral posterior tibial was 2+. Pre Procedural Pulses: bilateral dorsalis pedis was 3+. Pre Procedural Pulses: bilateral radial was 3+. Oxygen started at 2liters/min via nasal canula. right groin was prepped with chloroprep then draped in the usual sterile fashion. right radial was prepped with chloroprep then draped in the usual sterile fashion. Physician notified. Baseline sample Acquired. HR: 61 BPM. Patient's family unavailable. The patient would like Dr. Menjivar to call her , Joni, at the completion of the procedure. Equipment: 6F - Radial. Cardiac Cath Pack. ACIST Manifold Kit Model BT 2000. Heparinized Saline (2 units/mL), 1000 mL bag. Physician arrived. Physician scrubbed in. Immediate Pre-Procedure Time Out. Correct Patient: Yes; Correct Procedure: Yes; Correct Site: Yes; Correct Patient Position: Yes; Correct Supplies: Yes; Dried Flammable Prep: Yes; Blood Products Available: Yes;. Lidocaine 1% infiltrated to the right radial. Arterial access obtained. A 6 polish TIG catheter in over the exchange J wire. Multiple views taken of left coronary artery. Catheter redirected to the RCA. Catheter removed over the exchange J wire. A 5 polish Angled Pig catheter in over the exchange J wire. EDP Sample taken: LV 163/3,28; HR: 65 BPM; SpO2: 97%. LV gram performed in BROOKS @ 10 mL/second for a total of 30 mL. EDP Sample taken: LV 173/17,28; HR: 87 BPM; SpO2: 97%. Pullback taken: LV 165/13,25; AO 163/77(111); Mean: 0mmHg, Peak to Peak: 2mmHg, SEP: 8sec/min; HR: 68 BPM; SpO2: 97%. Catheter removed over the exchange J wire. Dr. Menjivar scrubbed out. A TR Band was successful obtaining hemostatsis at the Right Radial artery insertion site. Post Procedure: Pulses reassessed and unchanged. PERRLA. Strong, equal hand titrator bilaterally. No VTE prophylaxis required. Medication's Wasted: Nitro = 49.8 mg. Medication's Wasted: Heparin = 1000 Units. Medication's Wasted: Other = Versed 1 mg. Medication's Wasted: Other = Fentanyl 75 mcg. Total IV fluids: 30 mL. Post-op diagnosis: Non obstructive CAD. Complications: none. Estimated blood loss: 5mL-10mL. Responsiveness - Normal response to verbal stimuli; alert and oriented, PERRLA. Airway - Unaffected, no intervention required; spontaneous ventilation. Circulation: W/N/L, pulses unchanged. Nausea/Vomiting: No. Procedure completed. Patient transferred by wheelchair to CPRU. Vital chart was stopped. Access Site Site: Right Radial artery Sheath Size: 6 Fr Hemostasis Method: TR Band Hemostasis Success: Successful Procedure Medications Start: 7:57 AM Stop: 7:57 AM Medication: Versed Amount: 1 mg Route: I.V. Start: 7:57 AM Stop: 7:57 AM Medication: Fentanyl Amount: 25 mcg Route: I.V. Start: 7:59 AM Stop: 7:59 AM Medication: Nitrogylcerin Amount: 200 mcg Route: I.A. Start: 8:01 AM Stop: 8:01 AM Medication: Heparin Amount: 5000 units Route: I.V. I, the attending physician, have reviewed and verified all procedure medications. Yes, all medications given per verbal order History/Risk Factors Hypertension: Yes Dyslipidemia: Yes Peripheral Arterial Disease (PAD): No Myocardial Infarction (ID): No Obesity: Yes Renal Disease: No Tobacco Use: Former Prior Interventions PCI: No CABG: No Valve Surgery: No Report Signatures Finalized by Andrea Menjivar MD on 10/22/2023 09:46 AM
[2023-10-17] MEDS: diphenhydrAMINE 50 mg Capsule PO (06:15)
[2023-10-17] MEDS: aspirin 325 mg Tablet PO (06:15)
[2023-10-17 06:33] LABS: Basophils % 0.6 %; Eosinophils # 0.2 10^3/uL (0.0-0.8); Eosinophils % 2.8 %; Hematocrit 42.1 % (36-47); Mean Corpuscular HGB Conc 31.8 g/dL (30-55); Mean Corpuscular Hemoglobin 26.7 pg (27-33); Mean Platelet Volume 9.6 fL (7.4-10.4); Monocytes # 0.5 10^3/uL (0.2-0.9); Monocytes % 6.8 %; Neutrophils # 4.54 10^3/uL (1.8-7.7); Neutrophils % 62.5 %; Nucleated Red Blood Cells % 0 %; Platelet Count 221 10^3/cmm (157-399); Red Blood Count 5.01 10^6/uL (3.85-5.65); Red Cell Distribution Width 15.4 % (12.1-15.1); White Blood Count 7.25 10^3/uL (3.29-11.43)
[2023-10-17 06:50] LABS: Anion Gap 13.5 (5-19); Blood Urea Nitrogen 19 mg/dL (8-23); Calcium 9.1 mg/dL (8.5-10.5); Carbon Dioxide 26 mmol/L (22-29); Chloride 105 mmol/L (98-107); Glucose 153 mg/dL (65-115); Osmolality Calculated 297 mOsm/kg (285-295); Potassium 3.5 mmol/L (3.5-5.1); Sodium 141 mmol/L (136-145)
--- NOTE | 2023-10-17 07:55 | P.HPUD_ITS ---
Surgery/Procedure H&P Update DATE OF PROCEDURE: October 17, 2023 DATE H&P PERFORMED: 09/29/23 H&P UPDATE INFORMATION: I have reviewed H&P completed within last 30 days, I have examined patient prior to procedure and No changes to prior documentation PREOP DIAGNOSIS: Chest pain/abnormal stress test PRIMARY INDICATION FOR PROCEDURE: Chest pain/abnormal stress test PLANNED PROCEDURE: Operation Date: 10/17/23 07:00 Proposed Procedures p [facility] 76216 R94.39(Left) - Andrea Menjivar M.D Possible percutaneous coronary intervention PATIENT REASSESSED PRIOR TO SEDATION, WITH NO CHANGE NOTED: Yes PHYSICAL EXAM: alert, oriented x 3, clear to auscultation bilaterally and re gular rate & rhythm AIRWAY EVAL/ANESTHESIA PLAN: normal airway, ASA III, Local Anesthesia, Risks, benefits & alternatives of sedation and/or procedure discussed and Patient agr ees to continue as planned ADDITIONAL INFORMATION: Moderate sedation
--- NOTE | 2023-10-17 11:08 | PC.NURSE ---
TR BAND REMOVAL NOTE 0920- 1ml air removed from right radial TR band. Site asymptomatic. No signs of bleeding or hematoma. Radial pulse palpable. 0930- 2ml air removed from right radial TR band. Site asymptomatic. No signs of bleeding or hematoma. Radial pulse palpable. 0940- 2ml air removed from right radial TR band. Site asymptomatic. No signs of bleeding or hematoma. Radial pulse palpable. 1000- 2ml air removed from right radial TR band. Site asymptomatic. No signs of bleeding or hematoma. Radial pulse palpable. 1005- 2ml air removed from right radial TR band. Site asymptomatic. No signs of bleeding or hematoma. Radial pulse palpable. 1015- 2ml air removed from right radial TR band. Site asymptomatic. No signs of bleeding or hematoma. Radial pulse palpable. 1020- 2ml air removed from right radial TR band. Site asymptomatic. No signs of bleeding or hematoma. Radial pulse palpable. 1030- 2ml air removed from right radial TR band. Site asymptomatic. No signs of bleeding or hematoma. Radial pulse palpable. 1035- 2ml air removed from right radial TR band. Site asymptomatic. No signs of bleeding or hematoma. Radial pulse palpable. TR band deflated, left in place to monitor for bleeding. 1045 -Deflated TR band removed. Placed clean bandaid over site. Site remains asymptomatic, no signs of bleeding or hematoma. Pt given instructions on signs and symptoms to monitor at home regarding bleeding complications and signs of infection. Pt verbalized understanding.
== END 2023-10-17 11:50 | disposition home or self-care (01) ==
PROVIDERS: PCP Clinical Nurse Specialist Adult Health; Visit Provider Internal Medicine
DX: I25.10 Atherosclerotic heart disease of native coronary artery without angina pectoris (principal); I10 Essential (primary) hypertension; I48.20 Chronic atrial fibrillation, unspecified; E66.9 Obesity, unspecified; Z68.38 Body mass index [BMI] 38.0-38.9, adult; J44.9 Chronic obstructive pulmonary disease, unspecified; Z87.891 Personal history of nicotine dependence; Z79.82 Long term (current) use of aspirin; Z79.84 Long term (current) use of oral hypoglycemic drugs; Z79.01 Long term (current) use of anticoagulants; K21.9 Gastro-esophageal reflux disease without esophagitis; Z86.010 Personal history of colon polyps; I27.20 Pulmonary hypertension, unspecified; E78.2 Mixed hyperlipidemia; E11.43 Type 2 diabetes mellitus with diabetic autonomic (poly)neuropathy
CPT/HCPCS: 36415; 80048; 85025; 93458; 96361; 96365; 99152; 99153; C1769; C1887; C1894; J1644; J2250; J3010; J3490; J7030; Q0163; Q9967

== ENCOUNTER → 2023-11-04 13:15 | Outpatient (BNVA) | payer MEDICARE, SELFPAY | PROVIDERS: PCP Clinical Nurse Specialist Adult Health; Visit Provider Nurse Practitioner Family | DX: I25.10 Atherosclerotic heart disease of native coronary artery without angina pectoris (principal); I27.20 Pulmonary hypertension, unspecified; Z87.891 Personal history of nicotine dependence; I10 Essential (primary) hypertension | CPT/HCPCS: 99214 ==

== ENCOUNTER 2023-11-10 06:36 | Outpatient (CLI) | payer MEDICARE, SELFPAY ==
--- NOTE | 2023-11-10 07:00 | USCV_ITS ---
Shanae Baxter Age: 73 Gender: F : 1950 Exam Date: 11/10/2023 06:49 Ordering Phys: Sabine uHynh Technologist: GLENIS [place] [facility] [place]ication: abnormal heart rythym BP: 140 / 80 HR: 117 Rhythm: Sinus Technical Quality: Adequate MEASUREMENTS (Male / Female) Normal Values 2D ECHO LV Diastolic Diameter PLAX 4.0 cm 4.2 - 5.9 / 3.9 - 5.3 cm IVS Diastolic Thickness 1.3 cm 0.6 - 1.0 / 0.6 - 0.9 cm IVS Systolic Thickness 1.4 cm LVPW Diastolic Thickness 1.5 cm 0.6 - 1.0 / 0.6 - 0.9 cm LVPW Systolic Thickness 1.5 cm LVOT Diameter 2.0 cm LV Ejection Fraction 2D Teich 66.6 % LV Ejection Fraction MOD 2C 57.9 % LV Ejection Fraction 2C AL 59.2 % LA Diameter 4.1 cm RA Systolic Volume 4C AL 46.0 ml RA Systolic Volume 4C MOD 42.9 ml Aorta at Sinotubular Diameter 2.3 cm IVC Diameter 2.3 cm M-MODE LA Ao Ratio MM 1.4 AV Cusp Separation MM 2.2 cm DOPPLER AV Peak Velocity 131.0 cm/s LVOT Peak Velocity 109.0 cm/s AV Area Cont Eq vti 3.1 cm squared AV Area Cont Eq pk 2.6 cm squared MV Peak Velocity 120.0 cm/s MV Area PHT 7.7 cm squared TR Peak Velocity 163.0 cm/s TR Peak Gradient 10.6 mmHg TV Peak E Velocity 163.0 cm/s Right Atrial Pressure 3.0 mmHg Pulmonary Artery Systolic Pressu 13.6 mmHg PV Peak Velocity 107.0 cm/s FINDINGS Left Ventricle Normal left ventricular size and systolic function, EF 59%. Right Ventricle Thickening of the right ventricular free wall Right Atrium Possibly of normal size Left Atrium Normal size Mitral Valve No gross abnormalities noted . Aortic Valve Thickened aortic valve Tricuspid Valve No gross abnormalities noted Pulmonic Valve Pulmonic valve not well visualized. Pericardium Trivial pericardial effusion. Aorta Normal aortic annulus size. IVC The inferior vena cava appears normal. CONCLUSIONS Normal left ventricular size and systolic function, EF 59%. No gross wall motion normalities Thickened aortic valve. Normal cardiac chamber sizes. Trivial pericardial effusion. Right-sided structures could not be visualized well Comparison with the previous study is difficult because of the difference in the technical quality. Dr Krystle Merlos MD [facility] (Electronically Signed) Final Date: 10 November 2023 20:36 S
== END 2023-11-10 06:37 | disposition home or self-care (01) ==
LOC: RAD 06:36
PROVIDERS: PCP Clinical Nurse Specialist Adult Health; Visit Provider Nurse Practitioner Family
DX: I27.20 Pulmonary hypertension, unspecified (principal)
CPT/HCPCS: 93306

== ENCOUNTER → 2023-12-10 11:35 | Outpatient (BNVA) | payer MEDICARE, SELFPAY | PROVIDERS: PCP Clinical Nurse Specialist Adult Health; Visit Provider Clinical Nurse Specialist Adult Health | DX: E11.43 Type 2 diabetes mellitus with diabetic autonomic (poly)neuropathy (principal) | CPT/HCPCS: 83036 ==

== ENCOUNTER → 2023-12-30 09:38 | Outpatient (BNVA) | payer MEDICARE, SELFPAY | PROVIDERS: PCP Clinical Nurse Specialist Adult Health; Referring Provider Clinical Nurse Specialist Adult Health; Visit Provider Nurse Practitioner Family | DX: L57.0 Actinic keratosis (principal); L82.1 Other seborrheic keratosis; L91.8 Other hypertrophic disorders of the skin; L57.8 Other skin changes due to chronic exposure to nonionizing radiation | CPT/HCPCS: 17000; 99203 ==

== ENCOUNTER 2024-03-09 13:49 | Outpatient (CLI) | payer MEDICARE, SELFPAY ==
[2024-03-09 14:01] VITALS: PULSE 64; RESP 18; O2SAT 94
[2024-03-09] MEDS: albuterol 2.5 mg/3 mL Neb INHALATION (14:06)
== END 2024-03-09 13:50 | disposition home or self-care (01) ==
LOC: RT 13:50
PROVIDERS: PCP Clinical Nurse Specialist Adult Health; Visit Provider Internal Medicine Critical Care Medicine
DX: I27.21 Secondary pulmonary arterial hypertension (principal); R06.09 Other forms of dyspnea; J96.11 Chronic respiratory failure with hypoxia; J84.9 Interstitial pulmonary disease, unspecified; J84.89 Other specified interstitial pulmonary diseases
CPT/HCPCS: 94060; 94726; 94729; J7613

== ENCOUNTER 2024-03-10 13:26 | Outpatient (CLI) | payer MEDICARE, SELFPAY ==
--- NOTE | 2024-03-10 13:30 | CT_ITS ---
WS: [id number] CT chest wo con [id number] HISTORY: Worsening Hypoxemia TECHNIQUE: Axial imaging performed through the thorax. Coronal and sagittal reformats are submitted. All CT scans at [facility] use at least one of these dose optimization techniques: automated exposure control; mA and/or kV adjustment per patient size (includes targeted exams where dose is mat ched to clinical indication); or iterative reconstruction. CONTRAST: None DLP: 642.52 mGy.cm COMPARISON: 05/13/2023 Lungs and central airway: Mild pulmonary hyperexpansion. Peripheral interstitial prominence throughou t both lungs. No honeycombing or bronchiectasis identified. There has been slight progression of the peripheral interstitial thickening. No mass. Pleura: Normal. No pleural effusion. Heart and pericardium: Mild enlargement of the heart. No pericardial effusion. Mediastinum and johnny: Hilar regions are difficult to evaluate without IV contrast. No adenopathy iden tified. Vessels: Mild atherosclerosis aorta. No aneurysm. Pulmonary artery diameter has increased from 2.7 to 3.2 cm. Chest wall and lower neck: Bilateral breast implants with dense capsular contraction. RIGHT breast im plant is bulging medially. Upper abdomen: Suprarenal aortic calcification. Osseous structures: Mild increase in thoracic kyphosis. CT/CT chest wo con [id number] IMPRESSION: 1. Very minimal progression of interstitial peripheral thickening and prominen ce greatest in the lower lung adames. No honeycombing identified. No pneumonia. 2. Mild cardiomegaly. 3. Very mild atherosclerosis aorta. 4. Pulmonary artery is measuring slightly larger than on 05/13/2023.
== END 2024-03-10 13:27 ==
LOC: RAD 13:26
PROVIDERS: PCP Clinical Nurse Specialist Adult Health; Visit Provider Internal Medicine Critical Care Medicine
DX: I27.21 Secondary pulmonary arterial hypertension (principal); J96.11 Chronic respiratory failure with hypoxia; J84.9 Interstitial pulmonary disease, unspecified; J84.89 Other specified interstitial pulmonary diseases; J44.9 Chronic obstructive pulmonary disease, unspecified; G47.33 Obstructive sleep apnea (adult) (pediatric); E66.9 Obesity, unspecified; Z68.38 Body mass index [BMI] 38.0-38.9, adult
CPT/HCPCS: 71250; 99215

== ENCOUNTER → 2024-03-25 14:30 | Outpatient (BNVA) | payer MEDICARE, SELFPAY | PROVIDERS: PCP Clinical Nurse Specialist Adult Health; Visit Provider Internal Medicine Critical Care Medicine | DX: J84.89 Other specified interstitial pulmonary diseases; J96.21 Acute and chronic respiratory failure with hypoxia; E66.9 Obesity, unspecified; Z68.37 Body mass index [BMI] 37.0-37.9, adult; I27.20 Pulmonary hypertension, unspecified; K21.9 Gastro-esophageal reflux disease without esophagitis; G47.33 Obstructive sleep apnea (adult) (pediatric); E11.59 Type 2 diabetes mellitus with other circulatory complications; E66.01 Morbid (severe) obesity due to excess calories; Z79.84 Long term (current) use of oral hypoglycemic drugs | CPT/HCPCS: 99214 ==

== ENCOUNTER 2024-04-22 13:00 | Outpatient (CLI) | payer MEDICARE, SELFPAY ==
[2024-04-22 13:32] LABS: Basophils % 0.3 %; Eosinophils # 0.2 10^3/uL (0.0-0.8); Eosinophils % 2.6 %; Hematocrit 42.7 % (36-47); Lymphocytes # 1.5 10^3/uL (0.8-4.8); Lymphocytes % 24.9 %; Mean Corpuscular HGB Conc 31.4 g/dL (30-55); Mean Corpuscular Hemoglobin 25.1 pg (27-33); Mean Corpuscular Volume 80.1 fl (85-98); Mean Platelet Volume 10.3 fL (7.4-10.4); Monocytes # 0.5 10^3/uL (0.2-0.9); Monocytes % 8.2 %; Neutrophils # 3.86 10^3/uL (1.8-7.7); Neutrophils % 63.7 %; Nucleated Red Blood Cells % 0 %; Platelet Count 201 10^3/cmm (157-399); Red Blood Count 5.33 10^6/uL (3.85-5.65); Red Cell Distribution Width 16.9 % (12.1-15.1); White Blood Count 6.07 10^3/uL (3.29-11.43)
[2024-04-22 14:05] LABS: NT Pro B Type Natriuretic Pept 179 pg/mL (0-125)
== END 2024-04-22 13:01 | disposition home or self-care (01) ==
LOC: LAB 13:01
PROVIDERS: PCP Clinical Nurse Specialist Adult Health; Visit Provider Internal Medicine Critical Care Medicine
DX: J96.21 Acute and chronic respiratory failure with hypoxia (principal); I27.21 Secondary pulmonary arterial hypertension; E11.59 Type 2 diabetes mellitus with other circulatory complications; E66.9 Obesity, unspecified
CPT/HCPCS: 36415; 83880; 85025

== ENCOUNTER → 2024-06-28 09:19 | Outpatient (BNVA) | payer MEDICARE, SELFPAY | PROVIDERS: PCP Clinical Nurse Specialist Adult Health; Visit Provider Nurse Practitioner Family | DX: E11.9 Type 2 diabetes mellitus without complications (principal); I10 Essential (primary) hypertension; I48.20 Chronic atrial fibrillation, unspecified; I25.10 Atherosclerotic heart disease of native coronary artery without angina pectoris; Z87.891 Personal history of nicotine dependence | CPT/HCPCS: 99214 ==

== ENCOUNTER → 2024-09-13 11:01 | Outpatient (BNVA) | payer MEDICARE, SELFPAY | PROVIDERS: PCP Clinical Nurse Specialist Adult Health; Visit Provider Clinical Nurse Specialist Adult Health | DX: J22 Unspecified acute lower respiratory infection (principal) | CPT/HCPCS: 87400 ==

== ENCOUNTER 2024-09-27 14:29 | Emergency (ER) | payer MEDICARE, SELFPAY ==
[2024-09-27] VITALS (7 sets, daily range): BP systolic 157–173; BP diastolic 73–86; PULSE 74–97; RESP 18–20; TEMP 36.6; O2SAT 91–95
--- NOTE | 2024-09-27 14:45 | ECG_ITS ---
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 Measurements Intervals Organ Rate: 73 P: 59 WV: 150 QRS: 62 QRSD: 81 T: 64 QT: 380 QTc: 419 Interpretive Statements SINUS RHYTHM LOW QRS VOLTAGE IN PRECORDIAL LEADS [QRS DEFLECTION < 1.0 mV IN CHEST LEADS] No previous ECG available for comparison Electronically Signed On 09-29-2024 17:20:26 ELECTROTHERAPIST by Krystle Merlos M.D. [email or web address] [id number]
--- NOTE | 2024-09-27 17:20 | XRR_ITS ---
PROCEDURE INFORMATION: Exam: XR Chest Exam date and time: 09/27/2024 5:41 PM Age: 73 years old Clinical indication: Shortness of breath; Prior surgery; Surgery date: 6+ months; Surgery type: Allan lumpectomy; Additional info: SOB TECHNIQUE: Imaging protocol: Radiologic exam of the chest. Views: 1 view. COMPARISON: CT chest wo con [id number] 03/10/2024 1:29 PM FINDINGS: Limitations: Underpenetration. Patient rotation. Lungs: Mild interstitial prominence is likely artifactual. Lung bases are suboptimally evaluated due to calcified breast implants. Questionable patchy airspace opacities in the lung bases may be artifactual. Pleural spaces: No pleural effusion or pneumothorax. Heart/Mediastinum: Heart size is poorly evaluated. Vasculature: Atherosclerotic calcifications of the aorta are present. Bones/joints: No acute osseous abnormalities are seen. XR/XR chest 1V portable [id number] IMPRESSION: Questionable patchy airspace opacities in the lung bases may be artifactual. Atelectasis or developing consolidation could also have this appearance.
--- NOTE | 2024-09-27 17:25 | CTR_ITS ---
PROCEDURE INFORMATION: Exam: CTA Chest With Contrast Exam date and time: 09/27/2024 6:45 PM Age: 73 years old Clinical indication: Shortness of breath; Prior surgery; Surgery date: 6+ months; Surgery type: Chest tube after pneumo x15 yrs ago approx; Additional info: SOB TECHNIQUE: Imaging protocol: Computed tomographic angiography of the chest with contrast. Exam focused on the arteries. 3D rendering (Not supervised by radiologist): MIP and/or 3D reconstructed images were created by the technologist. Radiation optimization: All CT scans at this facility use at least one of these dose optimization techniques: automated exposure control; mA and/or kV adjustment per patient size (includes targeted exams where dose is matched to clinical indication); or iterative reconstruction. Contrast material: OMNIPAQUE 350; Contrast volume: 100 ml; Contrast route: INTRAVENOUS (IV); COMPARISON: CT chest wo con [id number] 03/10/2024 1:29 PM RADIATION DOSE METRICS: Total DLP (mGy-cm): 481.54 FINDINGS: Pulmonary arteries: There is no evidence of filling defects within the pulmonary arterial circulation to suggest pulmonary embolism. Main pulmonary artery segment measures 34 mm compared with 32 mm for the adjacent aorta. This could represent some mild pulmonary hypertension. Aorta: There is no thoracic aortic aneurysm or dissection. Lungs: No focal consolidation is identified. There is mild dependent atelectasis at the lung bases. There is diffuse ground-glass opacity in a peribronchovascular and gravitational distribution. This could represent some infectious or inflammatory disease or more likely interstitial edema. Please correlate with the clinical findings. Pleural spaces: There are small bilateral pleural effusions. Heart: Unremarkable. No cardiomegaly. No pericardial effusion. Lymph nodes: There is some mildly prominent hilar lymph nodes measuring up to 11 x 13 mm. There are calcified right hilar lymph nodes in keeping with old granulomatous disease. Bones/joints: The thoracic spine demonstrates moderate degenerative changes at multiple levels. Soft tissues: Bilateral calcified breast implants are again identified. CT/CT angio chest PE protcl [id number] IMPRESSION: 1. No evidence of pulmonary embolism. 2. Findings most likely representing some congestive failure. Please correlate clinically. 3. Question of mild pulmonary hypertension
--- NOTE | 2024-09-27 17:37 | ED_ITS ---
HPI - SOB/Dyspnea 2 General: Chief Complaint: Shortness of Breath/Dyspnea Stated Complaint: high bp, Time Seen by Provider: 09/27/24 17:17 Source: patient Mode of arrival: ambulatory Limitations: no limitations History of Present Illness: HPI Narrative: 73-year-old female who states that she h as been having some shortness of breath last 2 to 3 weeks states she had recently been diagnosed with pneumonia and has just finished her course of Levaquin. States she is continue to have some dyspnea she typically wears 2 L at home was had increase it to 3 she denies any pain or fever. Associated symptoms: Deny abdominal pain, chest pain, fever(s), nausea or vomiting Related Data Home Medications ?Medication ?Instructions ?Recorded ?Confirmed aspirin 81 mg tablet,delayed 81 mg PO DAILY 09/01/19 0 09/13/24 release Fish Oil 2,000 mg PO DAILY other 11/0709/13/24 Multivitamin 1 tab PO DAILY other 3 09/13/24 sildenafil (pulm.hypertension) 20 20 mg PO TID 3 09/13/24 mg tablet Previous Rx's ?Medication ?Instructions ?Recorded CPAP C-Flex +10 level III for #1 ea 01/07/24 sleep with mask, tubing and all other supplies needed metformin 500 mg tablet 500 mg PO BID #180 tabs 03/18 01/08 pravastatin 10 mg tablet 10 mg PO DAILY #90 tabs 03/18 01/08 hydrochlorothiazide 25 mg tablet 12.5 mg (1/2 x 25 mg) PO DAILY #90 04/09/24 tabs metoprolol tartrate 50 mg tablet 50 mg PO TID #240 tab s 06/28/24 glipizide 5 mg tablet, extended 5 mg PO DAILY #90 tabs 07/02/24 release 24 hr (Glucotrol XL) oxybutynin chloride 10 mg 10 mg PO DAILY #90 tabs 06/18 01/08 tablet,extended release 24 hr pantoprazole 40 mg tablet,delayed 40 mg PO DAILY #90 t abs 07/02/24 release blood sugar diagnostic (True #100 ea 07/07/24 Metrix Glucose Test Strip) fluticasone propionate 50 1 spray intranasal DAILY PRN 07/28/24 mcg/actuation nasal Allergy Symptoms #16 grams spray,suspension enalapril maleate 10 mg tablet 10 mg PO DAILY #90 tabs 07/29/24 hydrochlorothiazide 25 mg tablet 25 mg PO DAILY #90 ta bs 07/29/24 Nebulizer machine and supplies #1 ea 09/13/24 benzonatate 100 mg capsule 100 mg PO TID PRN cough #45 caps 09/13/24 oseltamivir 75 mg capsule (Tamiflu) 75 mg PO BID 5 day s #10 caps 09/13/24 albuterol sulfate 90 mcg/actuation 2 inh inhalation QI D PRN shortness 09/20/24 aerosol inhaler of breath or wheezing #8.5 g nel ipratropium 0.5 mg-albuterol 3 mg 3 ml inhalation Q6H PRN wheezing 09/20/24 (2.5 mg base)/3 mL nebulization #90 mL soln levofloxacin 750 mg tablet 750 mg PO DAILY #3 tabs 11/09 prednisone 20 mg tablet See Rx Instructions .Route 0 09/23/24 .COMPLEX #14 tabs apixaban 5 mg tablet (Eliquis) 5 mg PO BID #180 tabs 0 09/26/24 Allergies Allergy/AdvReac Type Severity Reaction Status Date / Time No Known Allergies Allergy Verified 09/27/24 14:41 Review of Systems 2 Const: Denies: fever(s), chills, body aches or change in appetite ENMT: Denies: throat pain or dental pain Card: Denies: chest pain Resp: Reports: dyspnea GI: Denies: abdominal pain, nausea, vomiting or diarrhea : Denies: dysuria Musc: Denies: neck pain or back pain Skin/Breast: Denies: rash Neuro: Denies: headache(s) PFSH ED 2 PFSH: Medical History [facility] (obstructive sleep apnea) compliant with CPAP. 2013 sleep study. C-Flex +10 level III. Negron FX nasal cpap mask extra small in size. Respironics deluxe chinstrap. Coronary artery disease 10/17/2023: 20% left circumflex, no other disease Chronic anticoagulation Chronic respiratory failure GERD (gastroesophageal reflux disease) Hyperlipidemia Hx of colonic polyps Herpes zoster COPD (chronic obstructive pulmonary disease) Interstitial lung disease Urinary urgency Recurrent UTI Hypertension Chronic meniscal tear of knee Pain, joint, knee, left Diabetes Type 2 diabetes mellitus Surgical History Hx of shoulder surgery Hx of arthroscopy of left knee Hx of bladder repair surgery Hx of hysterectomy History of lumpectomy of both breasts H/O umbilical hernia repair S/P left rotator cuff repair Family History Mother , age 41 Cancer Father , age 57 Emphysema lung Other Diabetes Heart disease Hypertension Social History Smoking and tobacco/nicotine status: former use of tobacco/nicotine (quit over 30 years ago) Quit status (tobacco/nicotine): has quit using Former quit date comment: 2ppd x 20 years Alcohol intake: never Substance/Drug Use: never Marital status: Current occupational status: retired Physical Exam 2 Const: COMMON NORMALS: patient oriented x3 HENMT: COMMON NORMALS: normocephalic and atraumatic HEAD & SCALP: n ormocephalic and atraumatic Eye: COMMON NORMALS: conjunctivae normal CONJUNCTIVA: Yes conjunctivae normal Neck/C-Spine: COMMON NORMALS: full ROM and supple Chest: COMMONS NORMALS: normal inspection of the chest Resp: COMMON NORMALS: No retractions and No use of accessory muscles A USCULTATION: wheezes Cardio: COMMON NORMALS: regular rate, regular rhythm and No murmurs present (Cardio) RATE: regular rate RHYTHM: regular rhythm GI: COMMON NORMALS: Normal to inspection, nondistended, normoactive bowel sounds present, Soft to palpation, non-tender and no masses PALPATION: Yes Soft to palpation Extremity: COMMON NORMALS: normal to inspection and full ROM Neuro: COMMON NORMALS: patient oriented x3, moves all extremities and no focal motor deficits Psych: COMMON NORMALS: mental status grossly normal, Normal thought process present and cooperative THOUGHT PROCESS: Normal thought process present Skin: COMMON NORMALS: no rashes or lesions noted and no wounds GENERAL SKIN EXAM: no rashes or lesions noted Course 2 Vital Signs: Vital signs: Vital Signs Temperature 97.8 F 09/27/24 14:31 Pulse Rate 97 09/27/24 19:00 Respiratory Rate 18 09/27/24 18:55 Blood Pressure 157/86 09/27/24 19:00 Pulse Oximetry 93 09/27/24 19:00 Oxygen Delivery Me thod Nasal Cannula 09/27/24 19:00 Oxygen Flow Rate 3 09/27/24 18:55 MDM - SOB/Dyspnea Medical Decision Making Patient presents for shortness of breath CTA showed no pneumonia or PE blood work here is stable she is well-appearing here she stable for discharge she is follow-up with PCP and return if worsening. Medical Records I reviewed the patient's medical records. Lab Data I reviewed the patient's lab results. 09/27/24 17:52 09/27/24 17:52 Labs/Radiology: Radiology Impressions Chest X-Ray 09/27/24 17:20 IMPRESSION: Questionable patchy airspace opacities in the lung bases may be artifactual. Atelectasis or developing consolidation could also have this appearance. Chest CTA 09/27/24 17:25 IMPRESSION: 1. No evidence of pulmonary embolism. 2. Findings most likely representing some congestive failure. Please correlate clinically. 3. Question of mild pulmonary hypertension Laboratory Results WBC 12.93 10^3/uL (3.29-11.43) H 09/27/24 17:52 RBC 5.39 10^6/uL (3.85-5.65) 09/27/24 17:52 Hgb 12.80 g/dL (11.27-16.99) 09/27/24 17:52 Hct 41.4 % (36-47) 09/27/24 17:52 MCV 76.8 fl (85-98) L 09/27/24 17:52 MCH 23.7 pg (27-33) L 09/27/24 17:52 MCHC 30.9 g/dL (30-55) 09/27/24 17:52 RDW 18.7 % (12.1-15.1) H 09/27/24 17:52 Plt Count 211 10^3/cmm (157-399) 09/27/24 17:52 MPV 9.8 fL (7.4-10.4) 09/27/24 17:52 Neut % (Auto) 89.4 % 09/27/24 17:52 Lymph % (Auto) 6.4 % 09/27/24 17:52 Ada % (Auto) 3.4 % 09/27/24 17:52 Eos % (Auto) 0.0 % 09/27/24 17:52 Baso % (Auto) 0.2 % 09/27/24 17:52 Neut # (Auto) 11.56 10^3/uL (1.8-7.7) H 09/27/24 17:52 Lymph # (Auto) 0.8 10^3/uL (0.8-4.8) 09/27/24 17:52 Ada # (Auto) 0.4 10^3/uL (0.2-0.9) 09/27/24 17:52 Eos # (Auto) 0.0 10^3/uL (0.0-0.8) 09/27/24 17:52 Baso # (Auto) 0.0 10^3/uL (0.0-0.1) 09/27/24 17:52 Nucleated RBC % (auto) 0 % 09/27/24 17:52 Nucleated RBCs # 0.0 /100WBC 09/27/24 17:52 PT 12.70 SECONDS (12.1-14.9) 09/27/24 17:52 INR 0.89 (0.8-1.2) 09/27/24 17:52 Sodium 143 mmol/L (136-145) 09/27/24 17:52 Potassium 4.3 mmol/L (3.5-5.1) 09/27/24 17:52 Chloride 106 mmol/L (98-107) 09/27/24 17:52 Carbon Dioxide 25 mmol/L (22-29) 09/27/24 17:52 Anion Gap 16.3 (5-19) 09/27/24 17:52 BUN 15 mg/dL (8-23) 09/27/24 17:52 Creatinine 0.5 mg/dL (0.5-0.9) 09/27/24 17:52 GFR Calculation Not Reportable 09/27/24 17:52 Glucose 210 mg/dL (65-115) H 09/27/24 17:52 Calculated Osmolality 303 mOsm/kg (285-295) H 09/27/24 17:52 Calcium 9.2 mg/dL (8.5-10.5) 09/27/24 17:52 Total Bilirubin 0.8 mg/dL (0.15-1.2) 09/27/24 17:52 AST 28 U/L (0-32) 09/27/24 17:52 ALT 50 U/L (0-33) H 09/27/24 17:52 Alkaline Phosphatase 64 U/L (35-105) 09/27/24 17:52 NT-Pro-B Natriuret Pep 837 pg/mL (0-125) H 09/27/24 17:52 Total Protein 6.4 g/dL (6.6-8.7) L 09/27/24 17:52 Albumin 3.9 g/dL (3.5-5.2) 09/27/24 17:52 Globulin 2.5 g/dL (1.3-4.6) 09/27/24 17:52 All radiology interpretation(s) finalized by discharge EKG Data EKG 1: I personally reviewed and interpreted this EKG as follows: EKG Interpretation Date: 09/27/24 EKG interpretation time: 17:53 Interpretation: nsr hr [address] elevation qrs [id number] Discharge Plan Discharge Patient Disposition: Home Clinical Impression: Shortness of breath Condition: Stable Prescriptions: No Action Fish Oil capsule 2,000 mg PO DAILY Multivitamin tablet 1 tab PO DAILY metoprolol tartrate 50 mg tablet 50 mg PO TID Qty: 240 3RF benzonatate 100 mg capsule 100 mg PO TID PRN (Reason: cough) Qty: 45 0RF (DME) Nebulizer machine and supplies See Rx Instructions .ROUTE .MEDSUPPLY Qty: 1 11RF Rx Instructions: As directed oseltamivir [Tamiflu] 75 mg capsule 75 mg PO BID 5 Days Qty: 10 0RF albuterol sulfate 90 mcg/actuation HFA aerosol inhaler 2 inh inhalation QID PRN (Reason: shortness of breath or wheezing) Qty: 8.5 2RF ipratropium-albuterol 0.5 mg-3 mg(2.5 mg base)/3 mL solution for nebulization 3 ml inhalation Q6H PRN (Reason: wheezing) Qty: 90 0RF levofloxacin 750 mg tablet 750 mg PO DAILY Qty: 3 0RF prednisone 20 mg tablet See Rx Instructions .Route .COMPLEX Qty: 14 0RF Rx Instructions: 2 tabs PO daily for 4 days, then 1 tab PO daily X 4 days, then 0.5 tab daily for 4 days, then stop; sildenafil (pulm.hypertension) 20 mg tablet 20 mg PO TID (DME) CPAP C-Flex +10 level III for sleep with mask, tubing and all other supplies needed See Rx Instructions .Route .MEDSUPPLY Qty: 1 0RF Rx Instructions: As directed pravastatin 10 mg tablet 10 mg PO DAILY Qty: 90 3RF metformin 500 mg tablet 500 mg PO BID Qty: 180 3RF hydrochlorothiazide 25 mg tablet 12.5 mg PO DAILY Qty: 90 3RF oxybutynin chloride 10 mg tablet extended release 24hr 10 mg PO DAILY Qty: 90 3RF pantoprazole 40 mg tablet,delayed release (DR/EC) 40 mg PO DAILY Qty: 90 3RF glipizide [Glucotrol XL] 5 mg tablet extended release 24hr 5 mg PO DAILY Qty: 90 3RF (DME) True Metrix Glucose Test Strip Strip See Rx Instructions .ROUTE .MEDSUPPLY Qty: 100 3RF Rx Instructions: As directed once daily fluticasone propionate 50 mcg/actuation spray,suspension 1 spray intranasal DAILY PRN (Reason: Allergy Symptoms) Qty: 16 11RF enalapril maleate 10 mg tablet 10 mg PO DAILY Qty: 90 3RF hydrochlorothiazide 25 mg tablet 25 mg PO DAILY Qty: 90 3RF Eliquis 5 mg tablet 5 mg PO BID Qty: 180 0RF aspirin 81 mg Tablet,Delayed Release (Dr/Ec) 81 mg PO DAILY Discharge Orders: Discharge ED (Routine); Ordered 09/27/24 Ordered By: Yvonne Bang Referrals: Sean Patel, CIGAR PACKING EXAMINER [Primary Care Provider] - 4-7 days Discharge Diet: Advance as tolerated Discharge Activity: Resume usual activity Patient Instructions: Shortness of Breath (ED) Print Language: Ukrainian Coding Level of Care Code ED Manager Clinical Services for Chrystal Grimm
--- NOTE | 2024-09-27 17:53 | ECG_ITS ---
[facility] Date: 2024-09-27 Pat Name: Shanae Baxter Department: Room: Gender: Female Check Totaler: : 1950 Requested By: Yvonne Bang Order Number: [id number] Deborah MD: Krystle Merlos M.D. Measurements Intervals [place] Rate: 75 P: 55 AL: 146 QRS: 58 QRSD: 86 T: 62 QT: 395 QTc: 441 Interpretive Statements SINUS RHYTHM LOW QRS VOLTAGE IN PRECORDIAL LEADS [QRS DEFLECTION < 1.0 mV IN CHEST LEADS] Compared to ECG 09/27/2024 14:45:01 No significant changes Electronically Signed On 09-29-2024 17:20:30 MEDICARE COMPLIANCE AUDITOR by Krystle Merlos M.D. [email or web address]
[2024-09-27 18:02] LABS: Basophils % 0.2 %; Hematocrit 41.4 % (36-47); Lymphocytes # 0.8 10^3/uL (0.8-4.8); Lymphocytes % 6.4 %; Mean Corpuscular HGB Conc 30.9 g/dL (30-55); Mean Corpuscular Hemoglobin 23.7 pg (27-33); Mean Corpuscular Volume 76.8 fl (85-98); Mean Platelet Volume 9.8 fL (7.4-10.4); Monocytes # 0.4 10^3/uL (0.2-0.9); Monocytes % 3.4 %; Neutrophils # 11.56 10^3/uL (1.8-7.7); Neutrophils % 89.4 %; Nucleated Red Blood Cells % 0 %; Platelet Count 211 10^3/cmm (157-399); Red Blood Count 5.39 10^6/uL (3.85-5.65); Red Cell Distribution Width 18.7 % (12.1-15.1); White Blood Count 12.93 10^3/uL (3.29-11.43)
[2024-09-27] MEDS: hyDRALAzine 20 mg/mL INJ 1 mL 10 MG IVP (18:11)
[2024-09-27 18:18] LABS: INR 0.89 (0.8-1.2)
[2024-09-27] MEDS: ipratropium-albuterol 3 mL Neb INHALATION (18:21)
[2024-09-27 18:34] LABS: Alanine Aminotransferase 50 U/L (0-33); Albumin Level 3.9 g/dL (3.5-5.2); Alkaline Phosphatase 64 U/L (35-105); Anion Gap 16.3 (5-19); Aspartate Amino Transferase 28 U/L (0-32); Blood Urea Nitrogen 15 mg/dL (8-23); Calcium 9.2 mg/dL (8.5-10.5); Carbon Dioxide 25 mmol/L (22-29); Chloride 106 mmol/L (98-107); Creatinine Clr Calc Pharmacy 79.6434; Globulin 2.5 g/dL (1.3-4.6); Glucose 210 mg/dL (65-115); NT Pro B Type Natriuretic Pept 837 pg/mL (0-125); Osmolality Calculated 303 mOsm/kg (285-295); Potassium 4.3 mmol/L (3.5-5.1); Sodium 143 mmol/L (136-145); Total Bilirubin 0.8 mg/dL (0.15-1.2); Total Protein 6.4 g/dL (6.6-8.7)
[2024-09-27] MEDS: iohexol 350 mg/mL 500 mL Btl (per mL) IV (18:49)
[2024-09-27] MEDS: ketorolac 30 mg/mL INJ 15 MG IVP (18:59)
== END 2024-09-27 20:24 | disposition home or self-care (01) ==
PROVIDERS: Emergency Provider Emergency Medicine; PCP Clinical Nurse Specialist Adult Health
DX: R06.02 Shortness of breath (principal); Z79.01 Long term (current) use of anticoagulants; Z79.82 Long term (current) use of aspirin; Z87.891 Personal history of nicotine dependence; I25.10 Atherosclerotic heart disease of native coronary artery without angina pectoris; E78.5 Hyperlipidemia, unspecified; J44.9 Chronic obstructive pulmonary disease, unspecified; E11.9 Type 2 diabetes mellitus without complications
CPT/HCPCS: 36415; 71045; 71275; 80053; 83880; 85025; 85610; 93005; 94640; 96374; 96375; 99285; J0360; J1885

== ENCOUNTER 2024-10-19 10:39 | Outpatient (CLI) | payer MEDICARE, SELFPAY ==
[2024-10-19 11:22] LABS: INR 1.66 (0.8-1.2)
== END 2024-10-19 10:40 | disposition home or self-care (01) ==
PROVIDERS: PCP Clinical Nurse Specialist Adult Health
DX: I48.91 Unspecified atrial fibrillation (principal)
CPT/HCPCS: 85610

== ENCOUNTER 2024-10-22 09:36 | Outpatient (CLI) | payer MEDICARE, SELFPAY ==
[2024-10-22 10:51] LABS: INR 2.16 (0.8-1.2)
== END 2024-10-22 09:37 | disposition home or self-care (01) ==
LOC: LAB 09:38
PROVIDERS: PCP Clinical Nurse Specialist Adult Health; Visit Provider Clinical Nurse Specialist Adult Health
DX: I48.91 Unspecified atrial fibrillation (principal)
CPT/HCPCS: 85610

== ENCOUNTER 2024-10-25 12:27 | Outpatient (CLI) | payer MEDICARE, SELFPAY ==
[2024-10-25 13:07] LABS: INR 2.24 (0.8-1.2)
== END 2024-10-25 12:28 | disposition home or self-care (01) ==
LOC: LAB 12:28
PROVIDERS: PCP Clinical Nurse Specialist Adult Health; Visit Provider Internal Medicine
DX: Z79.01 Long term (current) use of anticoagulants (principal)
CPT/HCPCS: 85610

== ENCOUNTER 2024-11-01 11:45 | Outpatient (CLI) | payer MEDICARE, SELFPAY ==
[2024-11-01 12:12] LABS: INR 2.61 (0.8-1.2)
== END 2024-11-01 11:46 | disposition home or self-care (01) ==
PROVIDERS: PCP Clinical Nurse Specialist Adult Health; Visit Provider Internal Medicine
DX: I48.91 Unspecified atrial fibrillation (principal)
CPT/HCPCS: 85610

== ENCOUNTER 2024-11-08 09:06 | Outpatient (CLI) | payer MEDICARE, SELFPAY ==
[2024-11-08 09:45] LABS: INR 1.84 (0.8-1.2)
== END 2024-11-08 09:07 | disposition home or self-care (01) ==
PROVIDERS: PCP Clinical Nurse Specialist Adult Health; Visit Provider Internal Medicine
DX: I48.91 Unspecified atrial fibrillation (principal)
CPT/HCPCS: 85610

== ENCOUNTER 2024-11-10 09:13 | Outpatient (CLI) | payer MEDICARE, SELFPAY ==
--- NOTE | 2024-11-10 09:40 | MM_ITS ---
WS: [id number] BILATERAL SCREENING DIGITAL BREAST MAMMOGRAPHY WITH CHILO DISPLACEMENT VIEWS. CAD PERFORMED. HISTORY: Z12.39 - Encounter for other screening for malignant neop... COMPARISON: 05/25/2021, 02/24/2020 Bilateral craniocaudal and mediolateral oblique views are performed with tomosynthesis and SM. Chilo displacement views in CC and MLO projection also performed. Breasts composition: There are scattered areas of fibroglandular density. Prepectoral breast implants are small caliber with capsular contraction. Bulging of the contour RIGHT implant medially. These findings are stable. There are additional benign-appearing calcifications in each breast. No distortion. Bilateral breast arterial calcifications. MM/MM scr BI tomosynthesis [id number] IMPRESSION: BI-RADS: 2 - Benign. FOLLOW-UP: 1 Year Follow-up
== END 2024-11-10 09:14 | disposition home or self-care (01) ==
PROVIDERS: PCP Clinical Nurse Specialist Adult Health; Visit Provider Clinical Nurse Specialist Adult Health
DX: Z12.31 Encounter for screening mammogram for malignant neoplasm of breast (principal); R92.323 Mammographic fibroglandular density, bilateral breasts; Z98.82 Breast implant status; R92.1 Mammographic calcification found on diagnostic imaging of breast
CPT/HCPCS: 77063; 77067

== ENCOUNTER 2024-11-15 09:01 | Outpatient (CLI) | payer MEDICARE, SELFPAY ==
[2024-11-15 10:10] LABS: INR 1.71 (0.8-1.2)
== END 2024-11-15 09:02 | disposition home or self-care (01) ==
LOC: LAB 09:03
PROVIDERS: PCP Clinical Nurse Specialist Adult Health; Visit Provider Internal Medicine
DX: Z98.890 Other specified postprocedural states (principal)
CPT/HCPCS: 85610

== ENCOUNTER → 2024-11-17 12:14 | Outpatient (BNVA) | payer MEDICARE, SELFPAY | PROVIDERS: PCP Clinical Nurse Specialist Adult Health; Visit Provider Internal Medicine | DX: J84.9 Interstitial pulmonary disease, unspecified (principal); I27.20 Pulmonary hypertension, unspecified; E78.2 Mixed hyperlipidemia; J44.9 Chronic obstructive pulmonary disease, unspecified; E11.43 Type 2 diabetes mellitus with diabetic autonomic (poly)neuropathy; Z87.891 Personal history of nicotine dependence; I48.20 Chronic atrial fibrillation, unspecified; Z79.01 Long term (current) use of anticoagulants; Z79.84 Long term (current) use of oral hypoglycemic drugs; Z79.82 Long term (current) use of aspirin | CPT/HCPCS: 99214 ==

== ENCOUNTER → 2024-11-24 13:43 | Outpatient (BNVA) | payer MEDICARE, SELFPAY | PROVIDERS: PCP Clinical Nurse Specialist Adult Health; Visit Provider Clinical Nurse Specialist Adult Health | DX: E11.59 Type 2 diabetes mellitus with other circulatory complications (principal) | CPT/HCPCS: 80053; 83036 ==

== ENCOUNTER → 2025-03-02 13:10 | Outpatient (BNVA) | payer MEDICARE, SELFPAY | PROVIDERS: PCP Clinical Nurse Specialist Adult Health; Visit Provider Clinical Nurse Specialist Adult Health | DX: E11.9 Type 2 diabetes mellitus without complications (principal); E11.40 Type 2 diabetes mellitus with diabetic neuropathy, unspecified | CPT/HCPCS: 80053; 80061; 81000; 82607; 83036; 84443; 85025 ==

== ENCOUNTER → 2025-03-09 10:24 | Outpatient (BNVA) | payer MEDICARE, SELFPAY | PROVIDERS: PCP Clinical Nurse Specialist Adult Health; Visit Provider Nurse Practitioner Family | DX: S40.261A Insect bite (nonvenomous) of right shoulder, initial encounter (principal); X58.XXXA Exposure to other specified factors, initial encounter; L57.8 Other skin changes due to chronic exposure to nonionizing radiation; L81.4 Other melanin hyperpigmentation; D22.0 Melanocytic nevi of lip; D48.5 Neoplasm of uncertain behavior of skin; L57.0 Actinic keratosis | CPT/HCPCS: 11102; 17000; 99214 ==

== ENCOUNTER → 2025-04-28 09:41 | Outpatient (BNVA) | payer MEDICARE, SELFPAY | PROVIDERS: PCP Clinical Nurse Specialist Adult Health; Visit Provider Internal Medicine | DX: J84.9 Interstitial pulmonary disease, unspecified (principal); I27.20 Pulmonary hypertension, unspecified; J96.11 Chronic respiratory failure with hypoxia; Z99.81 Dependence on supplemental oxygen; G47.33 Obstructive sleep apnea (adult) (pediatric); K21.9 Gastro-esophageal reflux disease without esophagitis; Z79.01 Long term (current) use of anticoagulants; Z79.82 Long term (current) use of aspirin; Z87.891 Personal history of nicotine dependence; J44.9 Chronic obstructive pulmonary disease, unspecified | CPT/HCPCS: 99214 ==

== ENCOUNTER 2025-05-04 15:30 | Outpatient (CLI) | payer MEDICARE, SELFPAY ==
--- NOTE | 2025-05-04 15:30 | CT_ITS ---
WS: [id number] CT chest wo con [id number] REASON FOR EXAM: COPD IV CONTRAST ADMINISTERED: 100 mL of Omnipaque 350. TECHNIQUE: Multiple axial images with intravenous contrast. Sagittal and coronal reconstructions performed. COMPARISON EXAMINATION: Nonenhanced CT scan of the chest 03/10/2024. TOTAL EXAM DLP: 603.[address] scans at [facility] use at least one of these dose optimization techniques: automated exposure control; mA and/or kV adjustment per patient size (includes targeted exams where dose is matched to clinical indication); or iterative reconstruction. FINDINGS: There is cardiomegaly. There is mild enlargement of the main and right and left main pulmonary arteries, unchanged compared to the previous examination. No mediastinal or hilar adenopathy or mass. In the upper lobes there are small cystic areas which are compatible with central lobar emphysema. In addition, most notably in the lower lungs posteriorly there is thickening of the pleura contiguous with with coarse reticular interstitial changes in the subpleural region without definite bronchiectasis or honeycombing. There are some areas of tree in bud appearance in the subpleural regions overall these abnormalities have not changed significantly. No pulmonary parenchymal mass. No nodules that require further survey. Moderate degenerative spondylosis in the mid and lower thoracic spine. CT/CT chest wo con [id number] IMPRESSION: There are chronic lung findings compatible with central lobar emphysema. 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 There was clearly an ac tive process in the subpleural region of the lungs demonstrated on the examinat ion of 09/21/2021. This has resolved to the current appearance in the subpleural regions. Overall the chest is stable compared to the previous examination of 03/10/2024.
== END 2025-05-04 15:31 | disposition home or self-care (01) ==
LOC: RAD 15:31
PROVIDERS: PCP Clinical Nurse Specialist Adult Health; Visit Provider Internal Medicine
DX: J44.9 Chronic obstructive pulmonary disease, unspecified (principal); I51.7 Cardiomegaly; R91.8 Other nonspecific abnormal finding of lung field; I28.8 Other diseases of pulmonary vessels
CPT/HCPCS: 71250

== ENCOUNTER 2025-05-24 06:51 | Outpatient (CLI) | payer MEDICARE, SELFPAY ==
[2025-05-24 07:39] VITALS: PULSE 77; RESP 20; O2SAT 93
== END 2025-05-24 06:52 | disposition home or self-care (01) ==
LOC: RT 06:52
PROVIDERS: PCP Clinical Nurse Specialist Adult Health; Visit Provider Internal Medicine
DX: J44.9 Chronic obstructive pulmonary disease, unspecified (principal)
CPT/HCPCS: 94060; 94726; 94729; J7613

== ENCOUNTER → 2025-06-02 13:51 | Outpatient (BNVA) | payer MEDICARE, SELFPAY | PROVIDERS: PCP Clinical Nurse Specialist Adult Health; Visit Provider Clinical Nurse Specialist Adult Health | DX: E11.9 Type 2 diabetes mellitus without complications (principal) | CPT/HCPCS: 80053; 80061; 82607; 83036; 85025 ==

== ENCOUNTER → 2025-08-01 09:04 | Outpatient (BNVA) | payer MEDICARE, SELFPAY | PROVIDERS: PCP Clinical Nurse Specialist Adult Health; Visit Provider Internal Medicine | DX: J84.9 Interstitial pulmonary disease, unspecified (principal); J96.11 Chronic respiratory failure with hypoxia; Z79.01 Long term (current) use of anticoagulants; K21.9 Gastro-esophageal reflux disease without esophagitis; I27.20 Pulmonary hypertension, unspecified; Z87.891 Personal history of nicotine dependence; J84.10 Pulmonary fibrosis, unspecified | CPT/HCPCS: 99214; Q3014 ==

== ENCOUNTER 2025-08-09 06:12 | Outpatient (CLI) | payer MEDICARE, SELFPAY ==
--- NOTE | 2025-08-09 06:15 | USCV_ITS ---
Shanae Baxter Age: 74 Gender: F : 1950 Exam Date: 08/09/2025 06:31 Ordering Phys: Jaz Sarah MD Technologist: Exam Location: [facility] Indication: afib pul hyper BP: 135 / 72 HR: 74 Rhythm: Sinus Technical Quality: Adequate MEASUREMENTS (Male / Female) Normal Values 2D ECHO LV Diastolic Diameter PLAX 3.9 cm 4.2 - 5.9 / 3.9 - 5.3 cm IVS Diastolic Thickness 1.7 cm 0.6 - 1.0 / 0.6 - 0.9 cm IVS Systolic Thickness 2.2 cm LVPW Diastolic Thickness 1.6 cm 0.6 - 1.0 / 0.6 - 0.9 cm LVPW Systolic Thickness 1.7 cm LVOT Diameter 2.0 cm LV Ejection Fraction 2D Teich 72.1 % LV Ejection Fraction MOD 4C 72.9 % LV Ejection Fraction MOD 2C 61.1 % LV Ejection Fraction 2C AL 59.3 % LA Diameter 4.4 cm RA Systolic Volume 4C AL 81.3 ml RA Systolic Volume 4C MOD 78.0 ml Aorta at Sinotubular Diameter 2.6 cm IVC Diameter 2.0 cm M-MODE LA Ao Ratio MM 1.6 AV Cusp Separation MM 1.9 cm DOPPLER AV Peak Velocity 170.3 cm/s LVOT Peak Velocity 61.0 cm/s AV Area Cont Eq vti 1.1 cm squared AV Area Cont Eq pk 1.2 cm squared MV Peak Velocity 135.0 cm/s MV Area PHT 3.0 cm squared Mitral E to A Ratio 40.1 TV Peak Velocity 245.5 cm/s TR Peak Velocity 321.0 cm/s TR Peak Gradient 41.2 mmHg TV Peak E Velocity 77.0 cm/s PV Peak Velocity 98.0 cm/s FINDINGS Left Ventricle Normal left ventricular size, systolic function and wall thickness, with no regional wall motion abnormalities. Left ventricular ejection fraction is estimated at 60 %. Grade III/IV diastolic dysfunction (restrictive filling pattern), severely elevated filling pressures. Right Ventricle Normal right ventricular size. Mild pulmonary hypertension, RVSP 45 mmHg. Right Atrium Normal right atrial size. Left Atrium Moderately increased left atrial size. IA Septum Normal appearance of the interatrial septum. Mitral Valve Moderately thickened mitral valve. Moderate mitral annular calcification. Trace mitral valve regurgitation. Aortic Valve Normal aortic valve structure. No aortic valve stenosis or regurgitation. Tricuspid Valve Thickened tricuspid valve. No tricuspid valve stenosis. Mild tricuspid valve regurgitation. Pulmonic Valve Normal pulmonic valve structure. No pulmonic valve stenosis or regurgitation. Pericardium No pericardial effusion. Aorta Normal diameter of the aortic root and ascending thoracic aorta. IVC Normal IVC diameter. CONCLUSIONS Normal left ventricular size, systolic function and wall thickness, with no regional wall motion abnormalities. Left ventricular ejection fraction is estimated at 60 %. Grade III/IV diastolic dysfunction (restrictive filling pattern), severely elevated filling pressures. Normal right ventricular size. Mild pulmonary hypertension, RVSP 45 mmHg. Moderately increased left atrial size. Thickened tricuspid valve. No tricuspid valve stenosis. Mild tricuspid valve regurgitation. There is no pericardial effusion. Right atrial pressure is around 5 mm of mercury. Alexx Griffith MD (Electronically Signed) Final Date: 15 August 2025 01:03 S
== END 2025-08-09 06:13 | disposition home or self-care (01) ==
LOC: RAD 06:13
PROVIDERS: PCP Clinical Nurse Specialist Adult Health; Visit Provider Internal Medicine
DX: J84.10 Pulmonary fibrosis, unspecified (principal); I51.89 Other ill-defined heart diseases; I27.20 Pulmonary hypertension, unspecified; I51.7 Cardiomegaly; I36.8 Other nonrheumatic tricuspid valve disorders; I36.1 Nonrheumatic tricuspid (valve) insufficiency
CPT/HCPCS: 93306